=== PATIENT | female | born 1960 | race Caucasian/White ===

== ENCOUNTER 2018-09-20 02:21 | Emergency (ER) | payer BC ==
[~2018-09-20] VITALS: Ht 157.5 cm; Wt 98.4 kg
[~2018-09-20 02:21] MED LIST: ACET325; ALBU4 PO; ALBU90I INH; ALOE VERA; AMLO5 PO; ASPI81CH PO; ATOR40TA PO; AZIT250 PO; Aspirin EC81 MG; BENZ100A PO; Bystolic10 MG PO; CELE200; CETI10; CIPRO500 MG PO; CLON.1 PO; COLC.6 PO; DIAZ2 PO; DIPATR PO; DIPH50; DIPH50 PO; DULO30 PO; ESCI20; FEVERFEW; FLUO20 PO; FLUSAL2505 IH; Flagyl500 MG PO; GABA300; HYDACE10B PO; HYDACE5 PO; HYDR1TAB94 PO; INTE30I; ISODICACE; ISODICACE PO; LEVSOD50 PO; LORA1; LORA1 PO; Levaquin500 MG PO; Lovastatin20 MG PO; METO50ER PO; MODA200; MONT10T PO; Mirapex0.25 MG JT; Mirapex0.25 MG PO; NEBI5 PO; NUEDEXTA 20-101 EACH PO; ONDA4ODT MM; ONDA8ODT MM; OSTEO BI FLEX; OXYACE5T PO; PRAM.5 PO; PRED10 PO; PRIM50; PROACE100; PROACE100 PO; PROC10 PO; PROC25S PR; PROP60; Pravastatin Sod80 MG PO; Protonix40 MG PO; RABE20; RABE20 PO; RANI150 PO; STOOL SOFTENER; SUCR1 PO; TECFIDERA240 MG PO; TOLT2; [UNRECOGNIZED DRUG - CODE] M/T; [UNRECOGNIZED DRUG - OTHER]; [UNRECOGNIZED DRUG - OTHER]
[2018-09-20] MEDS ORDERED: METF500C PO (02:51)
== END 2018-09-20 03:51 | disposition home or self-care (01) ==
LOC: ER 02:21
DX: G43.909 Migraine, unspecified, not intractable, without status migrainosus (principal); I10 Essential (primary) hypertension; J44.9 Chronic obstructive pulmonary disease, unspecified; Z88.0 Allergy status to penicillin; Z88.8 Allergy status to other drugs, medicaments and biological substances; Z79.899 Other long term (current) drug therapy
CPT/HCPCS: 96361; 96374; 96375; 99283-25; J1200; J1885; J2405; J7030

== ENCOUNTER 2018-09-21 14:54 | Emergency (ER) | payer BC ==
[~2018-09-21] VITALS: Ht 157.5 cm; Wt 98.4 kg
[~2018-09-21 14:54] MED LIST changes: +METF500C PO
== END 2018-09-21 16:40 | disposition home or self-care (01) ==
LOC: ER 14:54
DX: G43.909 Migraine, unspecified, not intractable, without status migrainosus (principal); Z86.73 Personal history of transient ischemic attack (TIA), and cerebral infarction without residual deficits; F41.9 Anxiety disorder, unspecified
CPT/HCPCS: 99283

== ENCOUNTER 2018-09-23 20:11 | Emergency (ER) | payer BC ==
[~2018-09-23] VITALS: Ht 157.5 cm; Wt 98.4 kg
[2018-09-23] MEDS ORDERED: Percocet 5-3251 EACH (21:30)
== END 2018-09-23 23:42 | disposition home or self-care (01) ==
LOC: ER 20:11
DX: G43.909 Migraine, unspecified, not intractable, without status migrainosus (principal); Z88.0 Allergy status to penicillin; Z88.1 Allergy status to other antibiotic agents; Z88.8 Allergy status to other drugs, medicaments and biological substances; Z91.018 Allergy to other foods; Z79.899 Other long term (current) drug therapy; Z79.82 Long term (current) use of aspirin; Z79.84 Long term (current) use of oral hypoglycemic drugs; J44.9 Chronic obstructive pulmonary disease, unspecified; I10 Essential (primary) hypertension
CPT/HCPCS: 36415; 96361; 96374; 96375; 99283-25; J1200; J1885; J2405; J2765; J7030

== ENCOUNTER → 2020-05-20 | Outpatient (CLI) | payer BC ==
[~2020-05-20] MED LIST changes: +Percocet 5-3251 EACH
== END | disposition home or self-care (01) ==
LOC: PLD 07:49 → LAB SHORT 07:49
DX: L82.1 Other seborrheic keratosis (principal)
CPT/HCPCS: 88305

== ENCOUNTER 2020-08-05 09:44 | Emergency (ER) | payer BC ==
[~2020-08-05] VITALS: Ht 157.5 cm; Wt 98.9 kg
[~2020-08-05 09:44] MED LIST changes: +NUEDEXTA PO
[2020-08-05 10:42] LABS: BASOPHILS ABSOLUTE AUTO 0.12 K/mm3 (0.00-0.23); BASOPHILS PERCENT AUTO 1 % (0-2); EOSINOPHILS ABSOLUTE AUTO 0.26 K/mm3 (0.00-0.68); EOSINOPHILS PERCENT AUTO 3 % (0-6); Hematocrit 44.5 % (33.0-51.0); Hemoglobin 14.9 g/dL (11.5-16.0); IMMATURE GRAN ABSOLUTE AUTO 0.08 K/mm3 (0.00-0.10); IMMATURE GRAN PERCENT AUTO 1 % (0-1); LYMPHOCYTES ABSOLUTE AUTO 2.43 K/mm3 (0.84-5.20); LYMPHOCYTES PERCENT AUTO 27 % (21-46); MONOCYTES ABSOLUTE AUTO 0.59 K/mm3 (0.16-1.47); MONOCYTES PERCENT AUTO 7 % (4-13); Mean Corpuscular HGB Conc 33.5 g/dL (31.5-36.5); Mean Corpuscular Volume 96 fL (80-100); Mean Platelet Volume 9.6 fL (9.1-12.4); NEUTROPHILS ABSOLUTE AUTO 5.51 K/mm3 (1.96-9.15); NEUTROPHILS PERCENT AUTO 61 % (41-73); Platelet Count 333 K/mm3 (150-400); RDW Standard Deviation 42.1 fL (35.1-46.3); Red Blood Cell Count 4.65 M/mm3 (3.80-5.20); White Blood Cell Count 8.99 K/mm3 (4.00-11.30)
[2020-08-05 10:55] LABS: Albumin, Blood 3.9 g/dL (3.4-5.0); Albumin/Globulin Ratio 1.1 (0.8-1.8); Bilirubin, Total 0.8 mg/dL (0.1-1.0); Bun/Creatinine Ratio 14.7 (12.0-20.0); Calcium, Blood 9.6 mg/dL (8.5-10.1); Creatinine, Blood 1.09 mg/dL (0.40-1.00); Globulin, Blood 3.5 g/dL (2.2-4.0); Potassium, Blood 3.9 mmol/L (3.5-5.5); Total Protein, Blood 7.4 g/dL (6.4-8.2)
[2020-08-05 10:58] LABS: International Normalized Ratio 1.02; Prothrombin Time Results 10.9 Sec (9.7-11.5)
[2020-08-05] MEDS ORDERED: CLOP75 PO (14:22)
[2020-08-08] MEDS ORDERED: LEVSOD75 PO (15:54)
[2020-08-08] MEDS ORDERED: Norco 10-325 T1 EACH PO (15:56)
[2020-08-08] MEDS ORDERED: METFORMIN HCL500 M2 PO (20:58)
[2020-08-08] MEDS ORDERED: LOVASTATIN40 MG PO (20:58)
[2020-08-08] MEDS ORDERED: PLAVIX75 MG PO (20:58)
[2020-08-08] MEDS ORDERED: DIAZEPAM5 MG PO (21:01)
== END 2020-08-05 14:56 | disposition home or self-care (01) ==
LOC: ER 09:44
PROVIDERS: Emergency Medicine
DX: I63.9 Cerebral infarction, unspecified (principal); R47.81 Slurred speech; G83.14 Monoplegia of lower limb affecting left nondominant side; R29.810 Facial weakness; J44.9 Chronic obstructive pulmonary disease, unspecified; F41.9 Anxiety disorder, unspecified; Z79.82 Long term (current) use of aspirin; Z79.84 Long term (current) use of oral hypoglycemic drugs; Z79.899 Other long term (current) drug therapy; Z88.0 Allergy status to penicillin; Z88.1 Allergy status to other antibiotic agents; Z88.6 Allergy status to analgesic agent; Z88.8 Allergy status to other drugs, medicaments and biological substances; Z91.018 Allergy to other foods; Z86.73 Personal history of transient ischemic attack (TIA), and cerebral infarction without residual deficits
CPT/HCPCS: 36415; 70551; 80053; 85025; 85610; 93005; 93010; 99285-25

== ENCOUNTER 2020-08-08 15:21 | Inpatient (IN) | payer MEDICARE, BC ==
[~2020-08-08] VITALS: Ht 165.1 cm; Wt 96.3 kg
[~2020-08-08 15:21] MED LIST changes: +CLOP75 PO; -NUEDEXTA PO; +NUEDEXTA PT
[2020-08-08] MEDS ORDERED: LEVSOD75 PT (15:54)
[2020-08-08] MEDS ORDERED: Norco 10-325 T1 EACH PT (15:56)
[2020-08-08 15:57] LABS: BASOPHILS ABSOLUTE AUTO 0.12 K/mm3 (0.00-0.23); BASOPHILS PERCENT AUTO 1 % (0-2); EOSINOPHILS ABSOLUTE AUTO 0.14 K/mm3 (0.00-0.68); EOSINOPHILS PERCENT AUTO 1 % (0-6); Hematocrit 45.1 % (33.0-51.0); Hemoglobin 14.9 g/dL (11.5-16.0); IMMATURE GRAN ABSOLUTE AUTO 0.08 K/mm3 (0.00-0.10); IMMATURE GRAN PERCENT AUTO 1 % (0-1); LYMPHOCYTES ABSOLUTE AUTO 3.84 K/mm3 (0.84-5.20); LYMPHOCYTES PERCENT AUTO 33 % (21-46); MONOCYTES ABSOLUTE AUTO 0.89 K/mm3 (0.16-1.47); MONOCYTES PERCENT AUTO 8 % (4-13); Mean Corpuscular HGB 31.7 pg (26.0-34.0); Mean Corpuscular Volume 96 fL (80-100); Mean Platelet Volume 9.9 fL (9.1-12.4); NEUTROPHILS ABSOLUTE AUTO 6.61 K/mm3 (1.96-9.15); NEUTROPHILS PERCENT AUTO 57 % (41-73); Platelet Count 400 K/mm3 (150-400); RDW Standard Deviation 42.2 fL (35.1-46.3); White Blood Cell Count 11.68 K/mm3 (4.00-11.30)
[2020-08-08] MEDS ORDERED: OMEPRAZOLE MAGN20 MG PO (15:58)
[2020-08-08 16:29] LABS: Alanine Aminotransfer (ALT/SGP 42 U/L (12-78); Albumin, Blood 4.3 g/dL (3.4-5.0); Albumin/Globulin Ratio 1.2 (0.8-1.8); Alk Phos 87 U/L (50-136); Anion Gap 9 mmol/L (6-16); Aspartate Aminotrans (AST/SGOT 42 U/L (12-37); Bilirubin, Total 1.1 mg/dL (0.1-1.0); Blood Urea Nitrogen 20 mg/dL (8-24); Bun/Creatinine Ratio 16.4 (12.0-20.0); CO2, Blood 27 mmol/L (21-32); Calcium, Blood 9.8 mg/dL (8.5-10.1); Chloride, Blood 107 mmol/L (98-108); Creatinine, Blood 1.22 mg/dL (0.40-1.00); Globulin, Blood 3.5 g/dL (2.2-4.0); Glomerular Filtration Rate 48 (60-); Glucose, Blood 121 mg/dL (70-99); Potassium, Blood 3.4 mmol/L (3.5-5.5); Sodium, Blood 143 mmol/L (136-145); Total Protein, Blood 7.8 g/dL (6.4-8.2); Troponin I <0.015 ng/mL (0.000-0.040)
[2020-08-08] MEDS ORDERED: PLAVIX75 MG PT (20:58)
[2020-08-08] MEDS ORDERED: METFORMIN HCL500 M2 PT (20:58)
[2020-08-08] MEDS ORDERED: LOVASTATIN40 MG PT (20:58)
[2020-08-08] MEDS ORDERED: ZENZEDI10 MG PO (20:59)
[2020-08-08] MEDS ORDERED: DIAZEPAM5 MG PT (21:01)
[2020-08-09 04:17] LABS: CHOL/HDL RATIO 4.5; Cholesterol 186 mg/dL (50-200); HDL Cholesterol 41 mg/dL (>39); LDL/HDL RATIO 2.8; Low Density Lipoprotein Chol 116 mg/dL (0-110); Triglycerides 147 mg/dL (30-160); Very Low Density Lipoprot Chol 29 mg/dL (6-32)
--- NOTE | 2020-08-09 06:47 | NUR ---
SUMMARY PATIENT CAME TO FLOOR VIA STRETCHER AND WAS SLID TO BED RECIEVED REPORT FROM DOMINGUEZ TARIQ. PATIENT IS ALERT AND APPEARS ORIENTED. PATIENT IS MOSTLY NON-VERBAL AND SHAKES HER HEAD YES OR NO TO QUESTIONS AND OCCASSIONALLY ANSWERS WITH ONE WORD. RESPONSE IS SLOW, PICTURE BOARD FOR COMMUNICATION PROVIDED PATIENT HAS RIGHT SIDE WEAKNESS. PATIENT WAS A TWO PERSON TRANSFER TO BEDSIDE COMMODE BUT BECAME LESS STEADY ON HER FEET, SUGGEST BED REST FOR NOW AND PATIENT AGREED. WHO IS PRIMARY CAREGIVER CAME WITH PATIENT TO UNIT AND HELPED ANSWER QUESTIONS. HE LEFT SOON AFTER THE PATIENT ARRIVED. PATIENT TURNED Q2 HOURS. VSS, NO ACUTE CHANGES. CALL LIGHT IN REACH, BED ALARM ON, AND BED IN LOWEST POSITION.
--- NOTE | 2020-08-09 17:42 | NUR ---
PT SUMMARY; STATUS CHANGED TO MEDICAL WITH NO TELE, VITALS HAS BEEN STABLE PT REMAINS ON 2L OF O2, SATS ABOVE 94%, AFEBRILE. PT FAILED BEDSIDE SWALLOW EVAL, PT WAS UNABLE TO SWALLOW WITH THICKENED LIQUIDS DR RODRIGUES MADE AWARE, ORDER FOR DOBHOFF PLACEMENT RECEIVED, DOBHOFF PLACED AND VERIFIED PLACEMENT VIA CHEST XRAY, DIET CONSULT ORDERED PT STARTED ON GLUCERNA TO START AT 25MLS/HR TO INCREASE 10-20 MLS Q8HRS UNTIL 50MLS/HR IS ACHIEVED. PT REMAINS NON VERBAL ABLE TO NOD HEAD FOR YES/NO RESPONSE USES PICTURE BOARD FOR COMMUNICATION. PT WORKED WITH THERAPY TODAY ABLE TO TRANSFER SAFELY 2 PA VIA GAITBELT TO CHAIR/BSC, PT HAS BEEN CONTINENT ALL SHIFT OF URINE AND BOWEL. PT FOR POSSIBLE DISCHARGE TO SNF FOR REHAB THERAPY. SON WAS IN TO VISIT AND IS AWARE OF THE PLANS. PT CURRENTLY IN BED RESTING ENTERAL TUBE FEEDING RUNNING AT 25MLS/HR FLUSHES 80MLS WATER Q4 HRS. CALL LIGHTS IN REACH, WILL MONITOR UNTIL END OF SHIFT.
[2020-08-10 04:16] LABS: Bun/Creatinine Ratio 18.5 (12.0-20.0); Calcium, Blood 9.6 mg/dL (8.5-10.1); Creatinine, Blood 1.08 mg/dL (0.40-1.00); Magnesium, Blood 2.2 mg/dL (1.6-2.4); Phosphorus, Blood 3.6 mg/dL (2.5-4.9); Potassium, Blood 3.5 mmol/L (3.5-5.5)
--- NOTE | 2020-08-10 05:48 | NUR ---
SHIFT SUMMARY PT A&OX4. SP02>92% ON 4L NC. NO TELE. PT HAS DOBHOFF, MEDICATIONS GIVEN THROUGH. NUTRITION INFUSED THROUGH DOBHOFF AT 25MLS/HR, INCREASED THIS SHIFT TO 35 MLS/HR WITH MINIMAL RESIDUAL. PT ATTEMPED TO AMBULATE TO [facility] THIS SHIFT BUT WAS UNSUCCESSFUL D/T WEAKNESS. PT USED BEDPAN AND ATTENDS. PT HAD 2 LOOSE BM'S THIS SHIFT. PT C/O OF HEADACHE PAIN, PLACED COOL RAG ON FOREHEAD AND MEDICATED W/ TYLENOL PER EMAR W/ SUCCESS. PT USED POINTER BOARD FOR COMMUNICATION. PT POINTED "I AM FRUSTRATED. I AM SAD." SAT WITH PT FOR SUPPORT/COMFORT THIS SHIFT PER PT REQUEST. CALL LIGHT IN REACH. WILL CONTINUE TO MONITOR.
--- NOTE | 2020-08-10 23:15 | NUR ---
TRANSFER PT A&OX4. PT NON VERBAL, USING PICTURE BOARD TO MAKE NEEDS KNOWN. SP02>92% ON 2L NC. VSS. PT HAS DOBHOFF INFUSING NUTRITION AT 50MLS/HR. PT DENIES PAIN THIS SHIFT. PT DID HAVE A MOMENT OF EMOTION, CRYING. PT SPELLED ON THE BAORD "I WANT TO DANCE". PT STATED HER FAVORITE BAND IS Tweegee. PLAYED Tweegee MUSIC AND DANCED WITH PT, PT'S MOOD ELEVATED. PT VOIDED ONE TIME IN ATTENDS THIS SHIFT. C/D ATTENDS IN PLACE. GAVE REPORT TO MEDICAL FLOOR NURSE.
--- NOTE | 2020-08-11 01:18 | NUR ---
08/10/20 4409 REPORT RECEIVED FROM CHANDNI AGRAWAL VIA PCU; PT TO ROOM VIA BED WITH DOBHOFF FEEDING TUBE INFUSING AT 50ML/HR VIA [place]ANG[place]OO PUMP; PTS RIGHT SIDE BODY FLACCID; PT LEFT ARMS HAS LIMITED MOVEMENT DOES LEFT ARM; NPO; SUCTION DEVICE SET UP AT BEDSIDE; SHAKES HEAD UP AND DOWN TO COMMUNICATE; BED ALARM APPLIED FOR SAFETY.
--- NOTE | 2020-08-11 03:08 | NUR ---
SHIFT SUMMARY: 60 Y/O OBESE FEMALE WAS RECEIVED FROM PCU 11 THIS SHIFT; PTS FEEDING INFUSING WITHOUT RESIDUAL NOTED VIA DOBHOFF INSERTED INTO LEFT NARE; PTS RIGHT SIDE BODY FLACCID; PT ABLE HAS GROSS MOTOR MOVEMENT TO LEFT ARM/LEG; PT NPO AT THIS TIME; ORAL CARE PERFORMED; DENIES PAIN OR NAUSEA; BED ALARM APPLIED, BED LOW POSITION WITH CALL LIGHT AT SIDE.
[2020-08-11 07:41] LABS: Magnesium, Blood 2.2 mg/dL (1.6-2.4); Phosphorus, Blood 3.5 mg/dL (2.5-4.9)
--- NOTE | 2020-08-11 12:21 | NUR ---
AT THE BEDSIDE- PT HAD C/O BEING TOO FULL THIS MORNING SO CONT TUBE FEED WAS DC'D PER DR MOSELEY. PT CURRENTLY REQUESTING TO HAVE THE NG TUBE REMOVED SO SHE CAN GO HOME. PT SON IS AT THE BEDSIDE AND STATES HE CAN DO WHAT SHE NEEDS. CALLED DR MOSELEY BACK TO SPEAK TO THE PT FAMILY. PT FAILED THE SWALLOW EVAL AGAIN THIS MORNING. UNCERTAIN IF THE SON UNDERSTANDS THE PT IS UNABLE TO EAT OR DRINK WITHOUT THE NG TUBE. PT IS ALERT AND CAN COMMUNICATE WITH STAFF USING THE TOUCH BOARD THAT IS ON HER SIDE TABLE. COGNITIVELY, IT IS NOT CLEAR AT THIS TIME THAT THE PT IS ABLE TO MAKE INFORMED DECISIONS. SHE IS VERY EMOTIONALLY VULNERABLE AT THIS TIME. WILL CTM THE PT AND PROVIDE CARE NEEDED.
--- NOTE | 2020-08-11 12:49 | NUR ---
attempted to call consult office closed for lunch. will reattempt after 1300
--- NOTE | 2020-08-11 15:20 | NUR ---
CALLED DR MOSELEY- DR CARDENAS CALLED SAID PT TO BE NPO AT MIDNIGHT. PT STILL WANTS THE TUBE OUT, CALLED DR MOSELEY OK TO REMOVE DOBHOFF AND MAKE PT NPO. ORDER RECIEVED FOR IVF AT 75 PER HOUR. HOLD LOVENOX FOR TOMORROW.
--- NOTE | 2020-08-11 17:02 | NUR ---
SHIFT SUMMARY- PT ALERT AND ORIENTED TO SELF FAMILY AND TIME. PT WAS SEEN BY PHYSICAL THERAPY THIS EVENING AFTER THE DOBHOFF WAS DC'D. PT WAS ABLE TO PERFORM MULTIPLE BED EXERCISES WITH MINIMAL ASSISTANCE. PHYSICAL THERAPY REQUESTED A RECLINER CHAIR IF POSSIBLE FOR TOMORROW. PLAN IS FOR THE PT TO GO FOR SURGERY TOMORROW TO HAVE A PEG TUBE PLACED FOR PT FEEDING NEEDS. PT HAS LR RUNNING AT 75ML/HR UNTIL SHE IS ABLE TO TAKE IN PO FLUIDS. PT SON IS AT THE BEDSIDE WHERE HE HAS BEEN FOR A GOOD PORTION OF THE DAY, HE PLANS TO STAY UNTIL VISITING HOURS ARE OVER. PT HAS BEEN VERY EMOTIONAL TODAY. WHEN THE DOBHOFF WAS REMOVED, WHICH SHE TOLLERATED VERY WELL, SHE BEGAN TO CRY; SHE INDICATED THEY WERE HAPPY TEARS SHE WAS SO GLAD TO HAVE IT OUT. PT REMAINS EMOTIONALLY VULNERABLE CURRENTLY. PALLIATIVE CARE MET WITH THE PT AND HER SON TO COMPLETE A POLST FORM, FORM IS IN THE FRONT OF THE PT CHART AWAITING DR HARDIN. WILL PASS ALL ON IN REPORT TO NIGHT RN IN BEDSIDE REPORT.
[2020-08-11 17:04] LABS: Influenza A, PCR Negative (NEGATIVE); Influenza B, PCR Negative (NEGATIVE); SARS-Cov-2 (COVID-19) PCR, MMC Negative (NEGATIVE)
[2020-08-11 17:05] LABS: Resp Syncytial Virus, PCR Negative (NEGATIVE)
--- NOTE | 2020-08-11 23:29 | NUR ---
0 RESTING COMFORTABLY IN BED; REPORT RECEIVED FROM CHANDNI MENDOZA; PT NPO AND IS PENDING PEG TUBE PLACEMENT IN AM.
--- NOTE | 2020-08-12 03:51 | NUR ---
SHIFT SUMMARY: 60 Y/O OBESE FEMALE HAD RESTLESS NIGHT 1/2 SHIFT TILL GIVEN FENTANYL 50MG FOR GENERALIZED PAIN WITH RELIEF FELT; PT CONTINUES TO BE NPO AND IS PENDING PEG TUBE PLACEMENT POSSIBLY TODAY; PTS RIGHT SIDE BODY FLACCID; NO SPEECH AND ALL COMMUNICATION DONE BY POINTING VIA BEDSIDE SIGN BOARD; ABLE TO FOLLOW SIMPLE VERBAL COMMANDS; ALERT AND ORIENTED X 2; BED ALARM APPLIED FOR SAFETY, BED LOW POSITION WITH CALL LIGHT AT SIDE; PT REQUIRES 100% ASSISTANCE WITH ALL ADLS/IADLS.
[2020-08-12 05:27] LABS: Anion Gap 5 mmol/L (6-16); Blood Urea Nitrogen 17 mg/dL (8-24); Bun/Creatinine Ratio 19.1 (12.0-20.0); CO2, Blood 28 mmol/L (21-32); Calcium, Blood 9.5 mg/dL (8.5-10.1); Chloride, Blood 109 mmol/L (98-108); Creatinine, Blood 0.89 mg/dL (0.40-1.00); Glomerular Filtration Rate >60 (60-); Glucose, Blood 128 mg/dL (70-99); Magnesium, Blood 2.1 mg/dL (1.6-2.4); Phosphorus, Blood 3.8 mg/dL (2.5-4.9); Potassium, Blood 4.1 mmol/L (3.5-5.5); Sodium, Blood 142 mmol/L (136-145)
--- NOTE | 2020-08-12 12:30 | NUR ---
PT TRANSFERED FROM FLOOR TO [facility]. History, Chart, Medications and Allergies reviewed before start of procedure. Lungs clear T/O to Auscultation. Patient confirms NPO status and agrees with scheduled surgery. Pre-Op teaching done. Pt verbalizes understanding.
--- NOTE | 2020-08-12 13:38 | NUR ---
08/12/20 1338 Shawanda Flor History, Chart, Medications and Allergies reviewed before start of procedure. PATIENT CONFIRMS NPO STATUS AND AGREES WITH SCHEDULED PROCEDURE.MONITOR INTACT WITH CONTINUOUS PULSE OXIMETRY AND INTERMITTENT BP. O2 VIA N/C INTACT THROUGHOUT SEDATION/PROCEDURE. 3-LEAD EKG REVIEWED WITH PHYSICIAN PRIOR TO START OF PROCEDURE. DR. TORREZ PROVIDING MAC. Bite Block Placed.
--- NOTE | 2020-08-12 14:04 | NUR ---
recieved telephone report from kam in day surgery. she reported the pt did well in the procedure and peg tube can be used in 6 hours post op.
--- NOTE | 2020-08-12 14:46 | NUR ---
PT RETURNED FROM DAY SURGERY STATES PAIN 06/27 WITH THE COMMUNICATION BOARD. PT GRUNTING WITH RESPIRATIONS, DIFFICULT TO COMMUNICATE, BUT PT DEFINATELY IN PAIN. MEDICATED PRE OP BY THIS RN. NO IV PAIN MEDICATION AVAILABLE AT THIS TIME. CALLED DR WAY AND LEFT A MESSAGE REQUESTING PAIN MEDICATION ORDERS. AWAITING A CALL BACK.
--- NOTE | 2020-08-12 18:13 | NUR ---
SHIFT SUMMARY- PT ALERT AND ORIENTED TO SELF, FAMILY AND PEOPLE. PT HAD A PEG TUBE PLACED TODAY. ORDER FROM DR MIKE GREENE TO USE PEG TUBE AT 1999. WILL PASS ON TO NIGHT RN. FEEDING INSTRUCTIONS NOT ACKNOWLEDGED THEY WILL NOT BE STARTED UNTIL AFTER SHIFT CHANGE. PT PAIN SEEMED TO BE WELL MANAGED WITH THE IV FENTANYL 50MCG RELAXED HER AND SHE SLEPT FOR 3 HOURS. UPON WAKING SHE REQUESTED MORE, NONE AVAILABLE FOR ANOTHER HOUR. PT REPOSITIONED AT THAT TIME WILL REASSESS SHORTLY. POST OP VITALS SHOW HIGH BP NEW BP MED ORDERED VIA PEG TUBE ONCE PEG IS ABLE TO BE USED. IVF TO CONTINUE AT THIS TIME, LARGE WATER BOLUSES NOT TO START UNTIL THE PT IVF HAS BEEN STOPPED PER DIETITIAN JOE KOROMA. WILL PASS ON INREPORT TO NIGHT RN.
--- NOTE | 2020-08-13 04:23 | NUR ---
SHIFT SUMMARY PATIENT'S NEW PEG TUBE RECEIVED FIRST BOLUS OF FEEDING THIS SHIFT PER ORDER. AXOX 3 AND NON-VERBAL. BEDREST AND NPO. MEDICATION CRUSHED THROUGH PEG TUBE. ABDOMINAL PAIN X TWO AND ULTRAM AND FENTANYL USED FOR PAIN MANAGEMENT PER EMAR. POWERGLIDE ALEXANDRO INTACT. CBG 169. ON CONTINUOUS PULSE OXIMETRY STATING 95% ON 1L O2 NC. BED IN LOWEST POSITION. CALL LIGHT IN REACH. WILL CONTINUE TO MONITOR UNTIL DAY SHIFT NURSE ASSUMES CARE.
--- NOTE | 2020-08-13 10:40 | NUR ---
ASKED DR. COOK IF SHE WOULD ORDER DIFFERENT PAIN MEDS. PATIENT NOW ON MECH SOFT SO CAN HAVE P.O. MEDS IF SHE WANTS TO ORDER.
--- NOTE | 2020-08-13 16:55 | NUR ---
REFUSES 1600 TUBE FEEDING. "FEELS FULL". ABLE TO GET ABOUT 5ML FLUID BACK. ADVISED PATIENT WE CAN TRY LATER.
--- NOTE | 2020-08-13 17:47 | NUR ---
APPEARS ALERT TO SELF , FAMILY AND WHERE SHE IS. PEG TUBE PLACED YESTERDAY. RECEIVED TWO FEEDINGS ON THIS SHIFT WITH PATIENT USING READER BOARDER TO SAY SHE FEELS FULL FOR THE THIRD FEEDING. THIRD FEEDING HELD AND WILL HAVE LICENSED PESTICIDE APPLICATOR DO. RT SIDED DEFICIT AND NONVERBAL. TURNED Q 2 HOURS. VERY SOFT STOOL. IV PATENT WITH MAINTENANCE FLUIDS RUNNING. MEDICATED ONCE FOR ABD PAIN WITH GOOD RESULTS. PEG TUBE DRESSING DRY AND INTACT. UNLABORED RESPIRATIONS. CONTINUOUS SAT MONITOR ON WITH SATS LOW TO MID 90'S. PATIENT DOES DESAT WHEN SHE GETS NARCOTIC PAIN RELIEF AND NEEDS TO BE REMINDED TO TAKE DEEP BREATHES THRU HER NOSE WITH GOOD RESULTS. WCTM.
--- NOTE | 2020-08-13 19:27 | NUR ---
Patient able to gently nod yes or no to simple questions. Right upper arm and hand flaccid. did place washcloth in hand. patient able to very weakly push down on my hand when asked with right foot. no leg lift. will continue close monitoring
--- NOTE | 2020-08-14 08:24 | NUR ---
PT BEEN RESTING QUIETLY. DISCUSSED PT'S STATUS WITH DR URIBE. REVIEWED MEDICATIONS, SEE EMAR/ORDERS.
--- NOTE | 2020-08-14 08:25 | NUR ---
DR URIBE REPORTS SEEING PT, THAT THE PT HAD DIFFICULTY THIS AM WITH BOARD AND THAT PT WAS ABLE TO LIFT RIGHT LEG SLIGHTLY BUT NOT WIGGLING TOES.
--- NOTE | 2020-08-14 08:55 | NUR ---
KEYMODULE ASSEMBLY MACHINE TENDER SUMMARY Patient awake most of night watching [employer] TV. One episode of incontinent stool, and multiple episodes of urine incont. Patient was with any movement on left side all night until this morning around 0600. She began pointing to her left foot when I entered the room, and when I went around the bed, she began to lift her leg. She was able to elevate it approx 3-4 inches off the bed. After this, She very haltingly said "this ...is...hard" and stopped talking. She gestured on tcomunication board that she wanted comfort, so I sat with her and gave her encouragement about the milestones she made this morning. Minimal Pain, being medicated twice with ultram with apparent good result
--- NOTE | 2020-08-14 11:12 | NUR ---
THERAPY WORKING WITH PT.
--- NOTE | 2020-08-14 19:09 | NUR ---
SHIFT SUMMARY PT CONT TO BE NONVERBAL ALTHOUGH COMMUNICATES WELL USING BOARD OR ANSWERING YES/NO QUESTIONS. PT WAS ABLE TO BE ASSISTED TO BSC THIS EVENING WITH 2 ASSIST. PT IN ATTENDS. PT HAVING BM'S FROM TUBE FEEDINGS. PT HAS HAD TUBE FEEDINGS TODAY. PT ABLE TO USE CALL LIGHT APPR USING L ARM. PT CONT TO BE UNABLE TO USE RIGHT ARM. PT ABLE TO ASSIST TO STAND WITH ASSIST USING GAITBELT. PT RECENTLY MEDICATED FOR BACK PAIN WHICH SHE REPORTED IS WORKING WELL FOR HER. PT HERE WHEN GIVING EVENING MEDICATIONS THROUGH PEG TUBE AND WAS DEMENSTRATED HOW TO USE AND TO CRUSH MEDICATIONS. PT SAT UP IN CHAIR THIS EVENING, NOW BACK IN BED. TO SEE PT, WELL MULT OTHER STAFF.
[2020-08-15 04:42] LABS: Anion Gap 4 mmol/L (6-16); Blood Urea Nitrogen 18 mg/dL (8-24); Bun/Creatinine Ratio 21.9 (12.0-20.0); CO2, Blood 31 mmol/L (21-32); Calcium, Blood 9.1 mg/dL (8.5-10.1); Chloride, Blood 105 mmol/L (98-108); Creatinine, Blood 0.82 mg/dL (0.40-1.00); Glomerular Filtration Rate >60 (60-); Glucose, Blood 145 mg/dL (70-99); Potassium, Blood 4.2 mmol/L (3.5-5.5); Sodium, Blood 140 mmol/L (136-145)
--- NOTE | 2020-08-15 04:56 | NUR ---
RETAIL COMMISSION SALES ASSOCIATE SUMMARY PT CONTINUES TO HAVE EXPRESSIVE APASHIA, SOMETIMES ABLE TO USE LETTERBOARD AND PICTURES TO COMMUNICATE. SHE HAS MOANED D/T BACK PAIN, REPOSITIONING WITHOUT RELIEF. DENIES HEAT THERAPY, MEDICATED PER EMAR. TOLERATED TUBE FEEDING WELL. CURRENTLY ON 2L VIA NC, CONT. BIOX IN PLACE. NO ACUTE NEEDS AT THIS TIME. BED IN LOWEST POSITION WITH CALL LIGHT IN REACH. WILL CONTINUE TO MONITOR AND REPORT TO ONCOMING RN.
--- NOTE | 2020-08-15 19:05 | NUR ---
PT RESTING IN BED AND REPORTS NO PAIN. IV RUNNING. PT PREFERES TO USE THE CAMODE AND IS A 2 MAX ASSIST. PT PRESENTS WITH R DROOP AND IS NOT ABLE TO VERBALIZE HER NEEDS. PT USES COMMUNICATION BOARD WELL. CONT. [facility] Q4. STAFF WILL CONT. TO MONITOR.
--- NOTE | 2020-08-16 04:47 | NUR ---
EDUCATOR SENIOR CLINICAL SUMMARY APPEARED TO SLEEP MOST OF THE NIGHT. C/O PAIN IN ABD AND BACK, MEDICATED PER EMAR. DENIED TUBE FEEDING THIS SHIFT IT CAUSES HER MORE PAIN. CURRENTLY ON 2L VIA NC AND CONT. BIOX WITH SATS GREATER THAN 92. R. SIDED DEFICITS NOTED, ABLE TO ANSWER YES OR NO QUESTIONS. NO ACUTE CHANGES AT THIS TIME. BED IN LOWEST POSITION WITH CALL LIGHT IN REACH. WILL CONTINUE TO MONITOR AND REPORT TO ONCOMING RN.
--- NOTE | 2020-08-16 18:32 | NUR ---
PT RESTING IN BED, A/OX4, PAIN UNDER CTL AFTER BEING MEDICATED PER EMAR. PT USES CALL LIGHT WHEN WHEN IN PAIN OR NEEING TO USE THE CAMODE AND COMMUNICATION BOARD USED WELL. PT REMAINS A 2MAX ASSIST. PT WAS ABLE TO USE HER R LEG TODAY, HOWEVER SHE REMAINS NON WEIGHT BEARING ON THE R SIDE WITH NO USE OF HER R ARM. FAMILY AT BEDSIDE. STAFF WILL CONT. TO MONITOR.
--- NOTE | 2020-08-16 22:59 | NUR ---
1998 60 Y/O RESTING COMFORTABLY; PT UNABLE TO VERBALIZE ANY UNDERSTANDABLE WORDS AND USES BEDSIDE PICTURE BOARD TO COMMUNICATE WITH STAFF; PTS RIGHT SIDE BODY FLACCID; BED ALARM APPLIED FOR SAFETY.
--- NOTE | 2020-08-17 03:36 | NUR ---
SHIFT SUMMARY: 60 Y/O OBESE FEMALE HAD UNEVENTFUL NIGHT THIS SHIFT; PTS O2 SAT ON ROOM AIR IS 95% (O2 WAS REMOVED SATS WERE HIGH AND PATIENT DEVELOPED A NOSE BLEED FROM BILATERAL NARES); PT STILL UNABLE TO VERBALIZE ANY WORDS WITH EXPRESSIVE APHASIA NOTED; PTS RIGHT SIDE BODY FLACCID; PT TOLERATING PEG TUBE FEEDINGS WITH INSERTION SITE DRESSING DRY AND INTACT; PT INCONTINENT LARGE AMOUNTS URINE WITH ATTENDS DIAPERS CHANGED X 2 STAFF; PT REQUIRES BED ALARM SHE TENDS TO PLACE LEFT LEG ON SIDE RAIL AND MOVES AROUND IN BED AT TIMES; BED LOW POSITION WITH CALL LIGHT AT SIDE; DENIES NAUSEA.
[2020-08-17 05:24] LABS: BASOPHILS PERCENT AUTO 1 % (0-2); EOSINOPHILS ABSOLUTE AUTO 0.57 K/mm3 (0.00-0.68); EOSINOPHILS PERCENT AUTO 6 % (0-6); Hematocrit 38.7 % (33.0-51.0); Hemoglobin 12.5 g/dL (11.5-16.0); IMMATURE GRAN ABSOLUTE AUTO 0.16 K/mm3 (0.00-0.10); IMMATURE GRAN PERCENT AUTO 2 % (0-1); LYMPHOCYTES PERCENT AUTO 23 % (21-46); MONOCYTES ABSOLUTE AUTO 0.74 K/mm3 (0.16-1.47); MONOCYTES PERCENT AUTO 8 % (4-13); Mean Corpuscular HGB 31.6 pg (26.0-34.0); Mean Corpuscular HGB Conc 32.3 g/dL (31.5-36.5); Mean Corpuscular Volume 98 fL (80-100); Mean Platelet Volume 10.5 fL (9.1-12.4); NEUTROPHILS ABSOLUTE AUTO 5.48 K/mm3 (1.96-9.15); NEUTROPHILS PERCENT AUTO 60 % (41-73); Platelet Count 336 K/mm3 (150-400); RDW Coefficient Variation 12.1 % (11.7-14.2); RDW Standard Deviation 43.5 fL (35.1-46.3); Red Blood Cell Count 3.96 M/mm3 (3.80-5.20); White Blood Cell Count 9.15 K/mm3 (4.00-11.30)
--- NOTE | 2020-08-17 10:01 | NUR ---
AIRCRAFT STRUCTURAL REPAIRER EQUAL. CAN NOT LIFT RT ARM FROM BED. WEAK PUSH, PULL RT LEG AND CAN NOT LIFT LEG FROM BED. UNABLE TO STICK OUT TONGUE OR SMILE. VERY FAINT RT SIDED FACIAL DROOP. USES WHITE BOARD APPROPRIATELY. TM
--- NOTE | 2020-08-17 11:00 | NUR ---
PER OK TO USE PEG TUBE. WILL GIVE MORNING MEDS AND TUBE FEEDING
--- NOTE | 2020-08-17 11:00 | NUR ---
per ok to d'c continuous sat monitor. sats have been mid to high 90's off oxygen.
--- NOTE | 2020-08-17 11:22 | NUR ---
ROLLED WASHCLOTH PLACED IN PATIENTS RT HAND TO HELP PREVENT CONTRACTURES. TOLERATED TUBE FEEDING. GOOD BOWEL SOUNDS. NO C/O PAIN AFTER FEEEDING/MED INSTILLATION. HOB UP 45 DEGREES. ONE PERSON ASSIST W/GAITBELT TO BSC/CHAIR.
--- NOTE | 2020-08-17 15:02 | NUR ---
AFTER OK TO USE PEG TUBE, GIVEN SMALLER TUBE FEEDINGS AND MORE FREQUENTLY YESTERDAY AND LAST NIGHT C/O FEELING FULL. WILL TRY TO WORK UP TO NORMAL AMOUNT.
--- NOTE | 2020-08-17 15:28 | NUR ---
ALERT TO SELF AND FAMILY. ROLLED WASHCLOTH PLACED IN RT HAND. SMOKE CONTROL SUPERVISOR EQUAL BUT UNABLE TO MOVE RT ARM FROM BED. ABLE TO PUSH/PULL WITH BLE, BUT RT DEFINATELY MUCH WEAKER THAN LEFT AND UNABLE TO LIFT RT LEG UP FROM BED. IS ABLE TO SLIDE RT LEG TO SIDE OF BED. 1-2 PERSON ASSIST WITH GAITBELT TO BSC. TOLERATED FIRST 2 TUBE FEEDINGS WELL, WILL INCREASE NEXT ONE AND HAVE NIGHT DO SAME. UNLABORED RESPIRATIONS OFF OF OXYGEN. WCTM
--- NOTE | 2020-08-17 22:52 | NUR ---
@2230- ADMINISTERED PEG TUBE FEEDING PER ORDER. 1 CARTON OF GLUCERNA 1.2 BY BOLUS/GRAVITY WITH 30MLS OF WATER FLUSH PRE AND POST FEEDING. PT. AT A 45 DEGREE ANGLE. NO RESIDUAL, PT. TOLERATED WELL. WILL CONT TO MONITOR.
--- NOTE | 2020-08-18 05:32 | NUR ---
SHIFT SUMMARY- PT. WITH RT SIDED WEAKNESS, NON-VERBAL USES COMMUNICATION BOARD TO COMMUNICATE. PT. TOLERATED TUBE FEEDING WELL LAST NIGHT. C/O GENERALIZED PAIN, MEDICATED PER EMAR WITH GOOD EFFECT. INCONT, ATTENDS IN PLACE. VSS, CALL LIGHT WITHIN REACH AND SIDE RAILS UPX2. WILL CONT TO MONITOR.
[2020-08-18 06:04] LABS: BASOPHILS ABSOLUTE AUTO 0.11 K/mm3 (0.00-0.23); BASOPHILS PERCENT AUTO 1 % (0-2); EOSINOPHILS ABSOLUTE AUTO 0.53 K/mm3 (0.00-0.68); EOSINOPHILS PERCENT AUTO 5 % (0-6); Hematocrit 36.6 % (33.0-51.0); Hemoglobin 11.5 g/dL (11.5-16.0); IMMATURE GRAN ABSOLUTE AUTO 0.18 K/mm3 (0.00-0.10); IMMATURE GRAN PERCENT AUTO 2 % (0-1); LYMPHOCYTES ABSOLUTE AUTO 2.98 K/mm3 (0.84-5.20); LYMPHOCYTES PERCENT AUTO 30 % (21-46); MONOCYTES ABSOLUTE AUTO 0.87 K/mm3 (0.16-1.47); MONOCYTES PERCENT AUTO 9 % (4-13); Mean Corpuscular HGB 31.2 pg (26.0-34.0); Mean Corpuscular HGB Conc 31.4 g/dL (31.5-36.5); Mean Corpuscular Volume 99 fL (80-100); Mean Platelet Volume 10.6 fL (9.1-12.4); NEUTROPHILS PERCENT AUTO 53 % (41-73); Platelet Count 346 K/mm3 (150-400); RDW Coefficient Variation 12.2 % (11.7-14.2); RDW Standard Deviation 44.6 fL (35.1-46.3); Red Blood Cell Count 3.69 M/mm3 (3.80-5.20); White Blood Cell Count 9.87 K/mm3 (4.00-11.30)
[2020-08-18 06:19] LABS: Alanine Aminotransfer (ALT/SGP 43 U/L (12-78); Albumin/Globulin Ratio 0.9 (0.8-1.8); Alk Phos 75 U/L (50-136); Anion Gap 4 mmol/L (6-16); Aspartate Aminotrans (AST/SGOT 27 U/L (12-37); Bilirubin, Total 0.8 mg/dL (0.1-1.0); Blood Urea Nitrogen 15 mg/dL (8-24); Bun/Creatinine Ratio 16.4 (12.0-20.0); CO2, Blood 31 mmol/L (21-32); Calcium, Blood 9.6 mg/dL (8.5-10.1); Chloride, Blood 103 mmol/L (98-108); Creatinine, Blood 0.92 mg/dL (0.40-1.00); Globulin, Blood 3.5 g/dL (2.2-4.0); Glomerular Filtration Rate >60 (60-); Glucose, Blood 134 mg/dL (70-99); Potassium, Blood 4.2 mmol/L (3.5-5.5); Sodium, Blood 138 mmol/L (136-145); Total Protein, Blood 6.5 g/dL (6.4-8.2)
--- NOTE | 2020-08-18 17:23 | NUR ---
CALLED PATIENT C/O LT SIDED C.P. NON RAD. ORDER; EKG, CHEST XRAY, TROP, TELE
--- NOTE | 2020-08-18 17:45 | NUR ---
WAS IN ROOM AND THIS RN WAS UNABLE TO TALK TO HIM, SO CALLED HIM TO DISCUSS BILATERAL NECK TO MEDIAL CLAVICLE SWELLING ON PATIENT. ORDER PAIN MEDS FOR COMFORT. PATIENT ANXIOUS AT TIMES AND APPEARS TO HOLD HER BREATH. LUNG SOUNDS CLEAR. WILL WAIT FOR XRAY RESULTS. PROCESS CONTROL ENGINEER NOTIFIED.
--- NOTE | 2020-08-18 18:35 | NUR ---
PATIENT HAS C/O ABD PAIN ABOUT 1/2 HOUR AFTER GETTING TUBE FEEDING. THERE HAS BEEN NO TO 30 ML RESIDUAL PRIOR TO FEEDING. PATIENT APPEARS TO HOLD HER BREATH AT TIMES. PATIENT HAD C/O LEFT SIDED CHEST PAIN WHICH PER PATIENT NON RADIATING TO JAW TO ARM. NOT DIAPHORETIC. SAW PATIENT AND AWAITING LAB AND XRAY RESULTS. TELE ON AND SR AT 88. HAS SWELLING BILATERAL NECK TO MEDIAL CLAVICLE AREA WITH AWARE. LUNGS ARE CLEAR. APPEARS COMFORTABLE AT THIS TIME. TM
--- NOTE | 2020-08-19 04:32 | NUR ---
SHIFT SUMMARY NO ACUTE CHANGES THIS SHIFT. PT HAS C/O ABD PAIN T/O SHIFT, MEDICATED PER NOV. PT REFUSED 2100 TUBE FEEDING D/T ABD PAIN AND NAUSEA. PT IS MOSTLY NONVERBAL BUT CAN SAY SOME SIMPLE WORDS THROUGH SLURRED SPEECH, PT IS ABLE TO USE READER BOARD TO COMMUNICATE. 2 PERSON ASSIST WITH GAIT BELT TO [facility] [place] [place], HAS MOMENTS OF INCONTINENCE. PT IS CURRENTLY LAYING IN BED WITH EYES CLOSED, EVEN AND UNLABORED RESPIRATIONS. BED IN LOWERED POSITION WITH ALARM IN PLACE. NO APPARENT NEEDS OR DISTRESS AT THIS TIME, WILL CONTINUE TO MONITOR UNTIL REPORT GIVEN TO DAY RN.
[2020-08-19 05:30] LABS: BASOPHILS ABSOLUTE AUTO 0.15 K/mm3 (0.00-0.23); BASOPHILS PERCENT AUTO 1 % (0-2); EOSINOPHILS ABSOLUTE AUTO 0.53 K/mm3 (0.00-0.68); EOSINOPHILS PERCENT AUTO 5 % (0-6); Hematocrit 36.4 % (33.0-51.0); Hemoglobin 12.1 g/dL (11.5-16.0); IMMATURE GRAN ABSOLUTE AUTO 0.22 K/mm3 (0.00-0.10); IMMATURE GRAN PERCENT AUTO 2 % (0-1); LYMPHOCYTES ABSOLUTE AUTO 3.26 K/mm3 (0.84-5.20); LYMPHOCYTES PERCENT AUTO 28 % (21-46); MONOCYTES ABSOLUTE AUTO 1.08 K/mm3 (0.16-1.47); MONOCYTES PERCENT AUTO 9 % (4-13); Mean Corpuscular HGB 32.3 pg (26.0-34.0); Mean Corpuscular HGB Conc 33.2 g/dL (31.5-36.5); Mean Corpuscular Volume 97 fL (80-100); Mean Platelet Volume 10.6 fL (9.1-12.4); NEUTROPHILS ABSOLUTE AUTO 6.38 K/mm3 (1.96-9.15); NEUTROPHILS PERCENT AUTO 55 % (41-73); NRBC ABSOLUTE 0.02 K/mm3 (0.00-0.02); NRBC Auto 0.2 /100 WBC (0.0-0.2); Platelet Count 324 K/mm3 (150-400); RDW Coefficient Variation 12.3 % (11.7-14.2); RDW Standard Deviation 43.5 fL (35.1-46.3); Red Blood Cell Count 3.75 M/mm3 (3.80-5.20); White Blood Cell Count 11.62 K/mm3 (4.00-11.30)
[2020-08-19 05:46] LABS: Alanine Aminotransfer (ALT/SGP 42 U/L (12-78); Albumin, Blood 2.8 g/dL (3.4-5.0); Albumin/Globulin Ratio 0.8 (0.8-1.8); Alk Phos 71 U/L (50-136); Anion Gap 4 mmol/L (6-16); Aspartate Aminotrans (AST/SGOT 33 U/L (12-37); Bilirubin, Total 0.8 mg/dL (0.1-1.0); Blood Urea Nitrogen 15 mg/dL (8-24); Bun/Creatinine Ratio 18.1 (12.0-20.0); CO2, Blood 32 mmol/L (21-32); Calcium, Blood 9.6 mg/dL (8.5-10.1); Chloride, Blood 104 mmol/L (98-108); Creatinine, Blood 0.83 mg/dL (0.40-1.00); Globulin, Blood 3.5 g/dL (2.2-4.0); Glomerular Filtration Rate >60 (60-); Glucose, Blood 115 mg/dL (70-99); Potassium, Blood 4.1 mmol/L (3.5-5.5); Sodium, Blood 140 mmol/L (136-145); Total Protein, Blood 6.3 g/dL (6.4-8.2)
--- NOTE | 2020-08-19 19:36 | NUR ---
nonverbal but commuative, refused some of meals today said they hurt to much and backed the idea, only gave one full feeding stopped others when complained of pain, no issue with pain when only giving medication/flush, iv saline locked, rm air, bsr given to noc nurse
--- NOTE | 2020-08-20 00:58 | NUR ---
PAIN 2330 PT C/O OF SUDDEN SHARP PAIN IN ABD/ PEG TUBE AREA. ISTRATE CALLED AND HE OK'D GIVING PT FENTANYL EARLY.
[2020-08-20 05:19] LABS: BASOPHILS ABSOLUTE AUTO 0.11 K/mm3 (0.00-0.23); BASOPHILS PERCENT AUTO 1 % (0-2); EOSINOPHILS ABSOLUTE AUTO 0.56 K/mm3 (0.00-0.68); EOSINOPHILS PERCENT AUTO 5 % (0-6); Hematocrit 33.8 % (33.0-51.0); Hemoglobin 11.1 g/dL (11.5-16.0); IMMATURE GRAN ABSOLUTE AUTO 0.26 K/mm3 (0.00-0.10); IMMATURE GRAN PERCENT AUTO 2 % (0-1); LYMPHOCYTES ABSOLUTE AUTO 3.49 K/mm3 (0.84-5.20); LYMPHOCYTES PERCENT AUTO 31 % (21-46); MONOCYTES ABSOLUTE AUTO 0.88 K/mm3 (0.16-1.47); MONOCYTES PERCENT AUTO 8 % (4-13); Mean Corpuscular HGB 32.2 pg (26.0-34.0); Mean Corpuscular HGB Conc 32.8 g/dL (31.5-36.5); Mean Corpuscular Volume 98 fL (80-100); Mean Platelet Volume 10.4 fL (9.1-12.4); NEUTROPHILS ABSOLUTE AUTO 6.05 K/mm3 (1.96-9.15); NEUTROPHILS PERCENT AUTO 53 % (41-73); Platelet Count 361 K/mm3 (150-400); RDW Coefficient Variation 12.3 % (11.7-14.2); RDW Standard Deviation 43.8 fL (35.1-46.3); Red Blood Cell Count 3.45 M/mm3 (3.80-5.20); White Blood Cell Count 11.35 K/mm3 (4.00-11.30)
[2020-08-20 06:10] LABS: Alanine Aminotransfer (ALT/SGP 44 U/L (12-78); Albumin, Blood 2.9 g/dL (3.4-5.0); Albumin/Globulin Ratio 0.8 (0.8-1.8); Alk Phos 68 U/L (50-136); Anion Gap 6 mmol/L (6-16); Aspartate Aminotrans (AST/SGOT 33 U/L (12-37); Bilirubin, Total 0.9 mg/dL (0.1-1.0); Blood Urea Nitrogen 15 mg/dL (8-24); Bun/Creatinine Ratio 15.4 (12.0-20.0); CO2, Blood 30 mmol/L (21-32); Calcium, Blood 9.5 mg/dL (8.5-10.1); Chloride, Blood 104 mmol/L (98-108); Creatinine, Blood 0.97 mg/dL (0.40-1.00); Globulin, Blood 3.5 g/dL (2.2-4.0); Glomerular Filtration Rate >60 (60-); Glucose, Blood 104 mg/dL (70-99); Potassium, Blood 4.1 mmol/L (3.5-5.5); Sodium, Blood 140 mmol/L (136-145); Total Protein, Blood 6.4 g/dL (6.4-8.2)
--- NOTE | 2020-08-20 06:35 | NUR ---
SUMMARY PT CONTINUES TO COMPLAIN OF ABD PAIN. PT REPORTS INCREASE IN PAIN W/ MEDS GIVEN THROUGH PEG. PT AFRAID OF PAIN THIS AM MED PASS. PT WAS ABLE TO SLEEP SOME PAIN FREE LATE INTO SHIFT. PT CURRENTLY SLEEPING AND BREATHING EASY. CALL LIGHT IN REACH.
--- NOTE | 2020-08-20 18:42 | NUR ---
SHIFT SUMMARY PT RESTING QUIETLY AT START OF SHIFT, BUT SOON WAKING IN DISTRESS. PT NONVERBAL D/T CVA, USING PICTURE BOARD TO ASSIST WITH COMMUNICATING NEEDS. PT C/O PAIN TO ABD AT PEG TUBE INSERTION SITE. PT MEDICATED PER EMAR. DR JOSEPH THEN IN TO SEE PT. ATIVAN IV X1 ORDERED. PT EVENTUALLY CALMED DOWN. PT THEN WENT FOR CT THRU PEG TUBE. PT RETURNED AND CONTINUED TO PRESS CALL LT FREQUENTLY. PT UNABLE TO WORK WITH PT TODAY D/T BEING TO SLEEPY FROM ATIVAN. PT SOON ASSISTED TO RECLINER AT BS VIA LIFT. PT REMAINED THERE FOR A WHILE UNTIL BECOMING INCONTINENT OF BOWELS. PT ASSISTED BACK INTO BED VIA LIFT. PT CLEANED AND CHANGED, POSITIONED FOR COMFORT. PT RESTED QUIETLY FOR A WHILE WITH AT BS. CALLED FOR PAIN MEDICATION, THOUGH PT WAS SLEEPING WITH HIM AT BS. PT WOKE BREIFLY TO NOD YES TO PAIN MEDICATION. DR JOSEPH THEN IN TO DISCUSS RESULTS OF CT AND PLAN OF CARE. DR JOSEPH TO PLACE ORDERS AND PT/OT TO WORK WITH PT OVER THE WEEKEND. [place] PLACED TO PANUS AND APOLINAR AREA REDNESS. SR PER TELE MX. PG TO ALEXANDRO PATENT. CALL LT IN REACH. BED ALARM ON FOR SAFETY. REPORT GIVEN TO ONCOMING RN.
--- NOTE | 2020-08-21 03:18 | NUR ---
SUMMARY PT HAS C/O OF ABD PAIN AT BEGINNING OF SHIFT. PT HAS COMPLAINED OF FEELING LIKE SHE IS CHOKING FREQUENTLY. PT IS BREATHING EASY AND NO OBSTRUCTIONS HAVE BEEN OBSERVED. PT SUCTIONED W/ OUT ISSUE. PT HAS BEEN MOVED FROM BED TO CHAIR TO HELP RELIEVE ISSUE. PTIS NOT IN RESP. DISTRESS. PT LS ARE CLEAR AND MOVING AIR. PT HAS SLEPT ONLY SOME AFTER ATIVAN WAS GIVEN. PT CURRENTLY AWAKE AND IN NO DISTRESS. PT SITTING UP IN CHAIR WITH CHAIR ALARM ON FOR SAFETY.
--- NOTE | 2020-08-21 18:05 | NUR ---
SHIFT SUMMARY: PATIENT C/O INTERMITTENT NAUSEA TODAY, REFUSED TWO FEEDINGS BUT HAS NO RESIDUAL FROM FEEDINGS SHE DID GET. DENIED PAIN AT TIMES. HAD TWO MEDIUM TO LARGE LOOSE BM'S; STARTED ON BANATROL TO ADD FIBER AND FIRM STOOL. GETTING UP TO BSC WITH 1 PERSON MAX ASSIST, NEEDS 2 STAFF FOR PERICARE AND BTB. SON VISITED TODAY AND ATTEMPTED TO HELP WITH TRANSFERS BUT DOES NOT USE PROPER BODY MECHANICS AND HANDLES THE PATIENT INCORRECTLY. ATTEMPTED TO TEACH HIM, BUT HE KEPT DOING THINGS HIS WAY. FAMILY WILL NEED TEACHING ON TRANSFERS AND TUBE FEEDINGS PRIOR TO D/C.
--- NOTE | 2020-08-22 03:00 | NUR ---
VEST RESTRAINT PT PLACED IN VEST RESTRAINT DUE TO HIGH FALL RISK AND PT CONTINUOUSLY ATTEMPTING TO GET OUT OF BED WITHOUT ASSIST. PT HAS BEEN ASSISTED WITH BATHROOM BOTH ON BEDPAN AND HELPED TO COMMODE. HELPED PT UP TO RECLINER AND SOON AFTER PT ATTEMPTS TO GET UP AND WANTS TO GO BACK TO HER BED. HAS BEEN HELPED WITH REPOSITIONING NUMEROUS TIMES AND MEDICATED FOR PAIN MULTIPLE TIMES. PT CONTINUES TO ATTEMPT TO GET OUT OF BED ALONE. PT IS EXTREMELY UNSTEADY AND CANNOT WALK WITHOUT MAX ASSIST. PT ALSO BECOMING AGGRESSIVE WITH STAFF AND HITTING AND KICKING. NOTIFIED DR DOSS AND RECIEVED ORDER FOR RESTRAINTS WELL IV HALDOL PRN. WILL CONTINUE TO MONITOR.
--- NOTE | 2020-08-22 04:47 | NUR ---
SHIFT SUMMARY PT USES BOARD FOR COMMUNICATION; PT IS VERY IMPULSIVE AND CONTINUOUSLY TRIES TO GET OUT OF BED; PT WAS AGITATED; VERY HIGH FALL RISK DUE TO UNSTEADY GAIT. PT IS NOW ON VEST RESTRAINTS-SEE OTHER NOTE. PT HAD SEVERAL LOOSE BM TODAY; PT RECEIVED BANATROL VIA PEG TUBE. PT ALSO C.O ABD PAIN; MEDICATED PER EMAR. BED ALARM IS ON AND CALL LIGHT WITHIN REACH.
--- NOTE | 2020-08-22 05:46 | NUR ---
BP ELEVATED PT ELEVATED AFTER THE PT EPISODES OF AGITATIONS. WILL CONTINUE MONITOR AND WILL PASS ON TO DAY NURSE.
--- NOTE | 2020-08-22 10:07 | NUR ---
PT CHARLENE (YELLS) AT YOU HITS AT YOU, SLAMMING THINGS IN ROOM ON BED SIDE TABLE, JENNIFER IS ON.
--- NOTE | 2020-08-22 11:09 | NUR ---
PT CONTINUES TO ATTEMPT TO GET OUT OF BED EVEN WITH STAFF AT BEDSIDE. JENNIFER IN PLACE AND PT PULLING ON RESTRAINTS. PRN NORCO GIVEN FOR ABD PAIN. PT AGRESSIVE WITH STAFF AT TIMES. REPORT GIVEN TO CHANDNI PONCE AND PT MOVED TO ROOM 352. ATTEMPTED TO CALL TO NOTIFY BUT NO ANSWER AND ANSWERING MACHINE FULL. SPOKE WITH PHYSICAL THERAPY WHO REPORTS PT IS NOT ON THERE LIST TODAY BUT WILL TRY TO SEE HER LATER TODAY TO WORK WITH SP[employer]SE FOR HOME. UPDATE GIVEN TO CHANDNI PONCE.
--- NOTE | 2020-08-22 19:21 | NUR ---
Shift Summary Patient has been quite restless today attempting to constantly climb out of bed. Frequently up to bedside commode, to chair, and back to bed. has been removing restraints and attempting to get patient out of bed by himself setting the alarm off. This RN explain that it was unsafe to do so without another person assisting since patient is 2max with transfers. Reminded to call for assistance with transfers to and from bed/commode/chair for the safety of patient and himself. verbalized understanding however continued to get patient out of bed by himself. Remote monitoring called this RN stating gave patient some pepsi to drink. Upon entering room, this RN saw a bottle of pepsi in 's L arm, capped. Explained that patient cannot be given anything orally. responded with "I only gave her one small sip" gesturing with his fingers. Continued to educate on patient's high risk of aspiration and reminded that it was not okay to give patient ANYTHING orally. did not respond after education and left home shortly thereafter. Camera is on. Bolus feedings with flushes, patient seems to tolerate them okay. Did c/o abdominal pain for which medicated per EMAR, good relief provided. Had loose stools this shift. Bed in lowest position, call light nearby. Report given to oncoming RN.
--- NOTE | 2020-08-23 04:50 | NUR ---
SHIFT SUMMARY PT AWAKE OFF AND ON T/O SHIFT. PT CONTINUES TO ATTEMPT TO GET OOB BY SWINGING HER LEGS OFF THE SIDE. PT IS VERY WEAK AND UNSTEADY WITHOUT THE HELP OF 2 STAFF MEMBERS AND A GAIT BELT. COUPLED WITH HER CONFUSION JENNIFER VEST IS STILL NEEDED. PT IS REMINDED FREQUENTLY THAT SHE IS IN THE HOSPITAL, BUT SHE IS VERY FORGETFUL. EXPRESSIVE APHASIA CONTINUES. PT AT TIMES ANSWERS QUESTIONS BY NODDING YES OR NO, AND OTHER TIMES SHE DOES NOT RESPOND AND STARES OFF BLANKLY. PT CONTINUES TO HAVE LARGE LIQUID STOOLS. SHE HAS HAD TWO THIS SHIFT. IRRITATION REMAINS AROUND PEG TUBE SITE SKIN SURROUNDING SITE IS RED. VITALS ARE STABLE. BED IN LOWEST POSITION, CALL LIGHT WITHIN REACH.
[2020-08-23] MEDS ORDERED: BANATROL PLUS1 EACH PT (15:26)
[2020-08-23] MEDS ORDERED: COREG12.5 MG PT (15:27)
[2020-08-23] MEDS ORDERED: SERT50 PT (15:27)
[2020-08-23] MEDS ORDERED: XARELTO20 MG PT (15:27)
[2020-08-23] MEDS ORDERED: ZEGERID 20 MG1 EACH PT (15:28)
[2020-08-23] MEDS ORDERED: LOSA50 PT (15:47)
--- NOTE | 2020-08-23 17:20 | NUR ---
Discharge Summary Discharging to home with HH. Reviewed equipments available at home with (transport chair, seated walker, regular FWW, 4pt cane, shower chair, grab bars x 2 in bathroom). Gave bolus feed equipment (piston packet) and bed quach. assured this RN that bedside commode and pill staff pharmacist hospital will be purchased soon. Also sent home approximately 21 cans of Glucerna from [employer] for bolus tube feedings. Feed schedule reviewed with , education provided for tube feedings and return demonstration was given by to this RN. Hard script also given to . Reviewed discharge paperwork with , questions were answered to 's satisfaction. Escorted by TELEVISION PRODUCTION CLERK and this RN, transported home by family/personal vehicle. [employer] Saba perry/romeo with [facility] and sent referral to CM to follow up with ordering additional Glucerna and HH. Instructed patient to hold off on feeding if residual > 150 mL per JoCarol and to keep patient upright 30-45 degrees. Patient verbalized understanding. Powerglide removed, intact. Personal belongings sent home.
== END 2020-08-23 16:48 | disposition home health service (06) | DRG 65 ==
LOC: ER 15:21 → PCU 15:22 → MEDS 15:22 → PCU 22:30 → MEDS 08-10 23:45
PROVIDERS: Family Medicine; Internal Medicine; Physician Assistant; Student in an Organized Health Care Education/Training Program; Surgery; ADMIT Hospitalist
PROC: 0DH64UZ Insertion of Feeding Device into Stomach, Percutaneous Endoscopic Approach (ICD-10-PCS; 2020-08-12)
PROC: 3E0G76Z Introduction of Nutritional Substance into Upper GI, Via Natural or Artificial Opening (ICD-10-PCS; 2020-08-12)
PROC: 0DJ08ZZ Inspection of Upper Intestinal Tract, Via Natural or Artificial Opening Endoscopic (ICD-10-PCS; principal; 2020-08-12 12:00)
DX: I63.541 Cerebral infarction due to unspecified occlusion or stenosis of right cerebellar artery (principal); G81.91 Hemiplegia, unspecified affecting right dominant side; E03.9 Hypothyroidism, unspecified; E11.22 Type 2 diabetes mellitus with diabetic chronic kidney disease; Z66 Do not resuscitate; E66.01 Morbid (severe) obesity due to excess calories; G35 Multiple sclerosis; J44.9 Chronic obstructive pulmonary disease, unspecified; K21.9 Gastro-esophageal reflux disease without esophagitis; I12.9 Hypertensive chronic kidney disease with stage 1 through stage 4 chronic kidney disease, or unspecified chronic kidney disease; N18.30 Chronic kidney disease, stage 3 unspecified; R13.12 Dysphagia, oropharyngeal phase; R47.01 Aphasia; F41.9 Anxiety disorder, unspecified; Z86.73 Personal history of transient ischemic attack (TIA), and cerebral infarction without residual deficits; Z68.35 Body mass index [BMI] 35.0-35.9, adult; K59.09 Other constipation; B37.2 Candidiasis of skin and nail; E78.5 Hyperlipidemia, unspecified
CPT/HCPCS: 0241U; 36415; 70450; 70496; 70498; 71045; 71046; 71260; 74018; 74176; 74240; 80048; 80053; 80061; 82947; 83036; 83735; 83880; 84100; 84484; 85025; 92507; 92523; 92526; 92610; 93005; 93010; 93306; 93970; 94762; 96360; 96361; 97110; 97112; 97116; 97162; 97166; 97530; 97535; 99285-25; A9270; A9270-GY; C1751; C1769; C9113; J1630; J1650; J1885; J2060; J2250; J2550; J2704; J3010; J7030; J7120; Q9967

== ENCOUNTER 2020-08-31 16:05 | Emergency (ER) | payer BC ==
[~2020-08-31] VITALS: Ht 162.6 cm; Wt 81.7 kg
[~2020-08-31 16:05] MED LIST changes: +BANATROL PLUS1 EACH PT; +COREG12.5 MG PT; +DIAZEPAM5 MG PT; +LEVSOD75 PT; +LOSA50 PT; +LOVASTATIN40 MG PT; +METFORMIN HCL500 M2 PT; +Norco 10-325 T1 EACH PT; +OMEPRAZOLE MAGN20 MG PO; +PLAVIX75 MG PT; +SERT50 PT; +XARELTO20 MG PT; +ZEGERID 20 MG1 EACH PT; +ZENZEDI10 MG PO
[2020-08-31 17:05] LABS: BASOPHILS ABSOLUTE AUTO 0.13 K/mm3 (0.00-0.23); BASOPHILS PERCENT AUTO 1 % (0-2); EOSINOPHILS ABSOLUTE AUTO 0.68 K/mm3 (0.00-0.68); EOSINOPHILS PERCENT AUTO 7 % (0-6); Hematocrit 39.1 % (33.0-51.0); Hemoglobin 12.5 g/dL (11.5-16.0); IMMATURE GRAN ABSOLUTE AUTO 0.16 K/mm3 (0.00-0.10); IMMATURE GRAN PERCENT AUTO 2 % (0-1); LYMPHOCYTES ABSOLUTE AUTO 2.09 K/mm3 (0.84-5.20); LYMPHOCYTES PERCENT AUTO 21 % (21-46); MONOCYTES PERCENT AUTO 8 % (4-13); Mean Corpuscular HGB 31.9 pg (26.0-34.0); Mean Corpuscular Volume 100 fL (80-100); Mean Platelet Volume 9.9 fL (9.1-12.4); NEUTROPHILS ABSOLUTE AUTO 6.27 K/mm3 (1.96-9.15); NEUTROPHILS PERCENT AUTO 62 % (41-73); Platelet Count 504 K/mm3 (150-400); RDW Coefficient Variation 13.1 % (11.7-14.2); RDW Standard Deviation 46.9 fL (35.1-46.3); Red Blood Cell Count 3.92 M/mm3 (3.80-5.20); White Blood Cell Count 10.13 K/mm3 (4.00-11.30)
[2020-08-31 17:20] LABS: International Normalized Ratio 1.08; Prothrombin Time Results 11.5 Sec (9.7-11.5)
[2020-08-31 17:24] LABS: Albumin, Blood 3.9 g/dL (3.4-5.0); Albumin/Globulin Ratio 1.1 (0.8-1.8); Bilirubin, Total 1.1 mg/dL (0.1-1.0); Bun/Creatinine Ratio 29.2 (12.0-20.0); Calcium, Blood 10.1 mg/dL (8.5-10.1); Creatinine, Blood 1.2 mg/dL (0.40-1.00); Globulin, Blood 3.5 g/dL (2.2-4.0); Potassium, Blood 4.6 mmol/L (3.5-5.5); Total Protein, Blood 7.4 g/dL (6.4-8.2)
[2020-08-31 17:29] LABS: Source, Urine Catheter
[2020-08-31 17:32] LABS: Appearance, Urine Clear (Clear); Bilirubin, Urine Neg (Neg); Blood, Urine Neg (Neg); Color, Urine Yellow (P-Yellow); Glucose Qualitative, Urine Neg (Neg); Ketones, Urine 2+ (Neg); Leukocyte Esterase, Urine Neg (Neg); Nitrite, Urine Neg (Neg); Protein, Urine 1+ (Neg); Specific Gravity, Urine 1.025 (1.003-1.022); Urobilinogen, Urine 1+ (Normal)
[2020-08-31 18:42] LABS: Influenza A, PCR Negative (NEGATIVE); Influenza B, PCR Negative (NEGATIVE); Resp Syncytial Virus, PCR Negative (NEGATIVE); SARS-Cov-2 (COVID-19) PCR, MMC Negative (NEGATIVE)
[2020-08-31] MEDS ORDERED: METO10SY PO (19:04)
== END 2020-08-31 20:27 | disposition home or self-care (01) ==
LOC: ER 16:05
PROVIDERS: Physician Assistant
DX: I63.9 Cerebral infarction, unspecified (principal); R13.10 Dysphagia, unspecified; E11.22 Type 2 diabetes mellitus with diabetic chronic kidney disease; I12.9 Hypertensive chronic kidney disease with stage 1 through stage 4 chronic kidney disease, or unspecified chronic kidney disease; N18.9 Chronic kidney disease, unspecified; J44.9 Chronic obstructive pulmonary disease, unspecified; F41.9 Anxiety disorder, unspecified; Z20.828 Contact with and (suspected) exposure to other viral communicable diseases; Z79.02 Long term (current) use of antithrombotics/antiplatelets; Z79.84 Long term (current) use of oral hypoglycemic drugs; Z79.01 Long term (current) use of anticoagulants; Z79.899 Other long term (current) drug therapy; Z88.0 Allergy status to penicillin; Z88.1 Allergy status to other antibiotic agents; Z88.8 Allergy status to other drugs, medicaments and biological substances; Z91.018 Allergy to other foods; Z86.73 Personal history of transient ischemic attack (TIA), and cerebral infarction without residual deficits
CPT/HCPCS: 0241U; 36415; 49465; 51701; 71046; 80053; 83605; 85025; 85610; 85730; 87040; 93005; 93010; 96361; 96374; 96375; 99285-25; J2765; J7030; Q9963

== ENCOUNTER 2020-09-28 12:08 | Day surgery (SDC) | payer BC ==
[~2020-09-28] VITALS: Ht 157.5 cm; Wt 99.0 kg
[~2020-09-28 12:08] MED LIST changes: +METO10SY PO
--- NOTE | 2020-09-28 12:55 | NUR ---
TO PROCEDURE ROOM VIA WHEELCHAIR. PT. IS EPHASIC BUT UNDERSTANDS ME SPEAKING TO HER. IS HERE TO ANSWER QUESTIONS.
--- NOTE | 2020-09-28 13:20 | NUR ---
DR. KEBEDE HERE. TIMEOUT COMPLETED.ANESTHESA/SEDATION WILL BE ADMINISTERED BY DR. KOVACS.
--- NOTE | 2020-09-28 13:25 | NUR ---
JENNIFER STARTED WITH SEDATION BY DR. KOVACS.
--- NOTE | 2020-09-28 14:00 | NUR ---
120 CC ORANGE JUICE ADMININSTERED VIA PEG TUBE. CBG PRE-PROCEDURE 96.
--- NOTE | 2020-09-28 14:45 | NUR ---
DISCHARGE INSTRUCTIONS GIVEN TO (CAREGIVER) WITH VERBAL AND WRITTEN UNDERSTANDING.
--- NOTE | 2020-09-28 15:00 | NUR ---
IV REMOVED INTACT. 2X2, COBAN AND MANULA PRESSURE APPLIED. DRESSING FOR DISCHARGE.
--- NOTE | 2020-09-28 15:31 | NUR ---
DISCHARGED HOME VIA WHEELCHAIR. SON DRIVING.
== END 2020-09-28 23:14 | disposition home or self-care (01) ==
LOC: MHTC 12:08
DX: I63.40 Cerebral infarction due to embolism of unspecified cerebral artery (principal); E11.9 Type 2 diabetes mellitus without complications; Q21.1 Atrial septal defect
CPT/HCPCS: 82947; 93246; 93312; 93325; A9270; J2704; J7120

== ENCOUNTER 2021-01-17 08:24 | Inpatient (IN) | payer MEDICARE, BC ==
[~2021-01-17] VITALS: Ht 167.6 cm; Wt 72.9 kg
[2021-01-17 09:04] LABS: Source, Urine Clean Catch
[2021-01-17 09:07] LABS: Appearance, Urine Cloudy (Clear); Blood, Urine 4+ (Neg); Color, Urine Yellow (P-Yellow); Glucose Qualitative, Urine Neg (Neg); Ketones, Urine 1+ (Neg); Leukocyte Esterase, Urine 3+ (Neg); Nitrite, Urine Pos (Neg); Protein, Urine 2+ (Neg); Specific Gravity, Urine 1.015 (1.003-1.022); Urobilinogen, Urine 3+ (Normal)
[2021-01-17 09:08] LABS: BASOPHILS ABSOLUTE AUTO 0.04 K/mm3 (0.00-0.23); BASOPHILS PERCENT AUTO 0 % (0-2); EOSINOPHILS ABSOLUTE AUTO 0.03 K/mm3 (0.00-0.68); EOSINOPHILS PERCENT AUTO 0 % (0-6); Hematocrit 42.7 % (33.0-51.0); Hemoglobin 14.2 g/dL (11.5-16.0); IMMATURE GRAN ABSOLUTE AUTO 0.24 K/mm3 (0.00-0.10); IMMATURE GRAN PERCENT AUTO 2 % (0-1); LYMPHOCYTES ABSOLUTE AUTO 4.48 K/mm3 (0.84-5.20); LYMPHOCYTES PERCENT AUTO 36 % (21-46); MONOCYTES ABSOLUTE AUTO 0.72 K/mm3 (0.16-1.47); MONOCYTES PERCENT AUTO 6 % (4-13); Mean Corpuscular HGB Conc 33.3 g/dL (31.5-36.5); Mean Corpuscular Volume 90 fL (80-100); Mean Platelet Volume 10.7 fL (9.1-12.4); NEUTROPHILS ABSOLUTE AUTO 6.82 K/mm3 (1.96-9.15); NEUTROPHILS PERCENT AUTO 56 % (41-73); NRBC Auto 0.8 /100 WBC (0.0-0.2); Platelet Count 302 K/mm3 (150-400); RDW Coefficient Variation 12.9 % (11.7-14.2); RDW Standard Deviation 42.5 fL (35.1-46.3); Red Blood Cell Count 4.74 M/mm3 (3.80-5.20); White Blood Cell Count 12.33 K/mm3 (4.00-11.30)
[2021-01-17 09:11] LABS: Bilirubin, Urine 2+ (Neg)
[2021-01-17 09:18] LABS: Bacteria Mod /hpf; Mucus Mod (0-Heavy); Red Blood Cells, Urine 50-100 /hpf (0-2); Renal Epithelial Few /hpf (0-Rare); Squamous Epithelial Cells Mod /hpf (Few); White Blood Cells, Urine 25-50 /hpf (0-5)
[2021-01-17 09:22] LABS: Alanine Aminotransfer (ALT/SGP 24 U/L (12-78); Albumin, Blood 3.7 g/dL (3.4-5.0); Albumin/Globulin Ratio 0.9 (0.8-1.8); Alk Phos 102 U/L (50-136); Anion Gap 4 mmol/L (6-16); Aspartate Aminotrans (AST/SGOT 23 U/L (12-37); Bilirubin, Total 1.3 mg/dL (0.1-1.0); Blood Urea Nitrogen 28 mg/dL (8-24); Bun/Creatinine Ratio 31.9 (12.0-20.0); CO2, Blood 36 mmol/L (21-32); Calcium, Blood 10.6 mg/dL (8.5-10.1); Chloride, Blood 101 mmol/L (98-108); Creatinine, Blood 0.88 mg/dL (0.40-1.00); Globulin, Blood 3.9 g/dL (2.2-4.0); Glomerular Filtration Rate >60 (60-); Glucose, Blood 163 mg/dL (70-99); Potassium, Blood 2.8 mmol/L (3.5-5.5); Sodium, Blood 141 mmol/L (136-145); Total Protein, Blood 7.6 g/dL (6.4-8.2)
--- NOTE | 2021-01-17 13:28 | NUR ---
SBAR REPORT FROM ROSEANNA SORIANO RN
--- NOTE | 2021-01-17 14:28 | NUR ---
NUTRITION. PER , TUBE FEEDS STARTED 01/16/2021 EVENING TIME, NESTLE AT 30 ML/HR. WAS FEEDING PUREE AND THINS PRIOR. DIRECT CHILL CASTING OPERATOR EVAL "A COUPLE WEEKS AGO" DETERMINED PATIENT WAS ASPIRATING. PATIENT WAS NOT TOLERATING GOAL RATE OF 60 ML/HR OF TUBE FEED: ABD CRAMPS, AND PRESSURE.
[2021-01-18 05:57] LABS: BASOPHILS ABSOLUTE AUTO 0.04 K/mm3 (0.00-0.23); BASOPHILS PERCENT AUTO 1 % (0-2); EOSINOPHILS PERCENT AUTO 1 % (0-6); Hematocrit 30.4 % (33.0-51.0); Hemoglobin 9.6 g/dL (11.5-16.0); IMMATURE GRAN PERCENT AUTO 4 % (0-1); LYMPHOCYTES ABSOLUTE AUTO 3.03 K/mm3 (0.84-5.20); LYMPHOCYTES PERCENT AUTO 38 % (21-46); MONOCYTES ABSOLUTE AUTO 0.43 K/mm3 (0.16-1.47); MONOCYTES PERCENT AUTO 5 % (4-13); Mean Corpuscular HGB 29.7 pg (26.0-34.0); Mean Corpuscular HGB Conc 31.6 g/dL (31.5-36.5); Mean Corpuscular Volume 94 fL (80-100); NEUTROPHILS PERCENT AUTO 51 % (41-73); NRBC ABSOLUTE 0.03 K/mm3 (0.00-0.02); NRBC Auto 0.4 /100 WBC (0.0-0.2); Platelet Count 163 K/mm3 (150-400); RDW Standard Deviation 44.7 fL (35.1-46.3); Red Blood Cell Count 3.23 M/mm3 (3.80-5.20)
[2021-01-18 06:15] LABS: Magnesium, Blood 1.8 mg/dL (1.6-2.4)
[2021-01-18 06:35] LABS: Albumin, Blood 2.4 g/dL (3.4-5.0); Anion Gap 2 mmol/L (6-16); Blood Urea Nitrogen 18 mg/dL (8-24); Bun/Creatinine Ratio 27.4 (12.0-20.0); CO2, Blood 32 mmol/L (21-32); Calcium, Blood 8.6 mg/dL (8.5-10.1); Chloride, Blood 114 mmol/L (98-108); Creatinine, Blood 0.66 mg/dL (0.40-1.00); Glomerular Filtration Rate >60 (60-); Glucose, Blood 115 mg/dL (70-99); Phosphorus, Blood 1.5 mg/dL (2.5-4.9); Potassium, Blood 3.1 mmol/L (3.5-5.5); Sodium, Blood 148 mmol/L (136-145)
--- NOTE | 2021-01-18 07:56 | NUR ---
SUMMARY PT WITH SIGNIFICANT HYPOTENSION TONIGHT.NS FLUID BOLUS ORDERED AND CONTINUOUS IV AT 125/HR AFTER. ALSO HOLDING COZAAR AND COREG FOR NOW PER ORDER.PT ALSO WITH INITIAL LACTIC 2.0 AND K 2.8 WITH 20 K GIVEN IN ER. FOLLOW UP LACTIC IMPROVED.K3.1. I SPOKE WITH DR DOSS AND GAVE K ELIXER 40 MQ PER PEG TUBE IN ADDITION TO FEEDINGS.BP REMAINS HYPOTENSIVE, BUT MILD IMPROVEMENT.
--- NOTE | 2021-01-18 10:00 | NUR ---
HYPOTENSION & HELD MEDS DR. AGRAWAL NOTIFIED OF HELD COREG & COZAR THIS AM DUE TO LOWER BPS. DR. AGRAWAL ALSO NOTIFIED THAT PRILOSEC WAS UNABLE TO BE GIVEN DUE TO IT BEING A CAPSULE AND A DIFFERENT FORM MAY BE NEEDED.
--- NOTE | 2021-01-18 13:43 | NUR ---
Upon receiving an admit referral for spiritual care, I visit the patient. She does not speak but can clearly communicate yes and no. Patient nods "yes" to doing ok and "no" to having pain. Patient also nodded affirmingly when asked if prayer could be provided. I gladly say a prayer for her. I will continue to remain available to patietn and family.
--- NOTE | 2021-01-18 17:57 | NUR ---
SHIFT SUMMARY PALLIATIVE CARE CONSULT PLACED THIS AM. KATELYN IN PALLIATIVE TO FOLLOW UP WITH PT IN THE NEXT FEW DAYS. PT HAD ONE LIQUID STOOL TODAY, INCONT. ODONNELL CATH REMOVED TODAY. CONFIRMED WITH PTS THAT SHE DOES NOT HAVE ONE AT HOME, PRIOR TO THIS. RESIDUALS HAVE BEEN GOOD AND PT IS TOLERATING TUBE FEEDINGS SO FAR TODAY. URINE OUTPUT DARK IN COLOR AND LOW. DR. AGRAWAL NOTIFIED. PT DID HAVE POSITIVE BLOOD CULTURES GREW TODAY, DR NOTIFIED OF THIS ALSO. NO OTHER CHANGES IN ASSESSMENT AT THIS TIME. VS REVIEWED. BP IMPROVED. PT RESTING IN BED AFTER REPOSITIONING. CALL LIGHT IN REACH.
--- NOTE | 2021-01-18 17:57 | NUR ---
Received consult today for this patient by her floor RN Kaye. She has concerns about pt's overall condition. Per pt's , pt had been declining for the past 2 weeks. Angel, her also tells me that pt has "taken to her bed" for the past 2 YEARS. He states he noticed the changes over the past 2 years seemed to coincide with relatives passing away, life changing at they go into their 50's. Angel states he tried to encourage his to get up and walk, get moving. He states she then had a stroke last year, and is now unable to talk, or use her right side. Angel states he understands with that pt has been depressed, and he understands her quality of life is becoming poorer. He reports he and the patient's son have been discussing possible retirement or other type of placement, as her care is becoming too much for 1 person to handle. I asked him, "what would you do it Liz refused tube feeds?" He states, "I would make her eat". He does not appear ready to discuss comfort as a possibility. Will follow up again before pt leaves the hospital.
[2021-01-19 05:23] LABS: Anion Gap 3 mmol/L (6-16); Blood Urea Nitrogen 19 mg/dL (8-24); Bun/Creatinine Ratio 29.5 (12.0-20.0); CO2, Blood 29 mmol/L (21-32); Calcium, Blood 8.6 mg/dL (8.5-10.1); Chloride, Blood 114 mmol/L (98-108); Creatinine, Blood 0.64 mg/dL (0.40-1.00); Glomerular Filtration Rate >60 (60-); Glucose, Blood 93 mg/dL (70-99); Magnesium, Blood 1.6 mg/dL (1.6-2.4); Phosphorus, Blood 1.4 mg/dL (2.5-4.9); Potassium, Blood 3.9 mmol/L (3.5-5.5); Sodium, Blood 146 mmol/L (136-145)
--- NOTE | 2021-01-19 05:42 | NUR ---
60 year old Female with MS & HX of CVA with rt hemiparesis continues nonverbal & blinks per report of baseline. PT is & reported PT's Spouse unable to care for PT's needs. Reportedly had pallative care consult yesterday to discuss possible comfort care & reportedly PT's Spouse is interested in LTC. PT had allen cath dc just prior to industrial technologist & she has been incontinent of stool x 1 but no void. Bladder scanned for 186 ml. Medicated for rt sided pain with tylenol x 1 325 ng per peg, & ultram 50 mg x 1 with helpful effect. Turn & reposition Q 2 hours.
--- NOTE | 2021-01-19 15:34 | NUR ---
Spiritual care visit conducted. Patient is lying in bed and alert. I ask patient if she like music and she nodded affirmingly and then I asked her if I could play guitar for her and she again showed her approval. I played guitar for 35 minutes breaking every few songs to check-in to see how she was doing. I also spoke inspiring words and scriptures during those brief breaks. Patient would close her eyes during songs and look at me at the conclusion of each. Patient agreed to prayer which I gladly provided. Patient looked relaxed and agreed that the music was helpful. I will continue to remain available to patient and family.
--- NOTE | 2021-01-19 16:41 | NUR ---
SHIFT SUMMARY, PT ALERT AND ORIENTED, BUT DIFFICULTY TO ASSESS D/T NON VERBAL COMMUNICATION POST CVA WITH RIGHT SIDED HEMIPARESIS. PT USES BLINKING AND MILD NODDING IN RESPONSE TO YES/NO QUESTIONS. PT IN ROOM FOR VISIT TODAY, AND UPDATED ON PLAN OF CARE. DIETARY CONSULT AND ADJUSTMENT OF FEEDING TUBE ORDERS. PT CURRENTLY ON 45ML/HR OF CONT FEEDS VIA PEG TUBE WITH 60ML/HR BEING GOAL RATE. FLUIDS AND Q6 BG DC'D TODAY. REQUESTS CARDIAC MED HOLD D/T HYPOTENSIVE BP. PT CURRENTLY RECEIVING IV ABX FOR PYELONEPHRITIS AND +BLOOD CULTURES. PT REPORTED PAIN x1 TODAY, AND MEDICATED PER EMAR. PT STATES MILD PAIN IS WNL. REPOSITIONING Q2 HOURS. ODONNELL CATHETER DC'D YESTERDAY. PT HAD SPONTANEOUS VOID x3 TODAY. PT DISCUSSED WITH THIS RN AND SUPERVISOR MOLD SHOP TODAY THAT HE WOULD LIKE TO BRING PT HOME UPON DISCHARGE. VITALS REVIEWED. PT CURRENTLY RESTING IN BED WITH AT BEDSIDE. DENIES ANY NEEDS AT THIS TIME.
--- NOTE | 2021-01-19 17:12 | NUR ---
I stopped in to see pt today, and she continued to stare blankly at this RN when I attempted to speak to her. However, this afternoon when her arrived, she had perked up significantly, was able to move her head quite easily, and she not only smiled several times, but also attempted to speak 2 separate times. Discussed pt's health over the last year, and her gave a little more detail today. He states that pt had decided to try to eat food last year, and so they tried stopping the tube feeds and putting her back on a regular diet. Unfortunately, she began losing weight while on a regular diet, and when they attempted to return her back to tube feeds, she was only able to tolerate a scant amount each meal, losing a total 68 lbs prior to returning to tube feeding entirely. Plan is for pt to return home w home health.
--- NOTE | 2021-01-19 18:03 | NUR ---
ADMIT: 01/17/21 DISCHARGE: DX: Pyelonephritis CC: cpeabody CARLITOS CALL: RESIDENCE: Home CAREGIVER: Angel Brown, Spouse / Partner, Tank Ayala, Child, DX: HTN, CKD, GERD, CVA, see list DME: leoncio lift, WC, CM supplies, nebulizer, see list CCM: none [facility]: [facility]- [facility] (current) SUMMARY: Admit: 01/17/21 01/19/[address] Garcia, possible d/c date Monday. Met with and Liz, discussed care at home, feels he has everything he needs, says he and his son just need to do a little better job taking care of her. I asked if they were in need of caregiver assistance. He replied "no" He plans to have her return home at discharge. Left him my number for anything he could think of for care needs for discharge. cp This is a 60-year-old female who had a left frontal temporal cerebrovascular accident resulting in right hemiparesis and aphasia.
--- NOTE | 2021-01-20 01:39 | NUR ---
PT more alert still nonverbal except for occasional squeal when PT is painful. Incontient of lag loquid brown stool on tube feeding at 45 ml hr with 85 ml q 4 hr warer flush. NPO with pegtube after CVA & ongoing decline due to MS. Does not use call murguia, appears to watch TV with galsses on. Perianal & lillie skin redness excoriation skin care providded. Coccxy redness scarring, mepilex changed after fecal incontinence.
[2021-01-20 05:22] LABS: BASOPHILS PERCENT AUTO 1 % (0-2); EOSINOPHILS ABSOLUTE AUTO 0.25 K/mm3 (0.00-0.68); EOSINOPHILS PERCENT AUTO 2 % (0-6); Hematocrit 32.5 % (33.0-51.0); Hemoglobin 10.5 g/dL (11.5-16.0); IMMATURE GRAN ABSOLUTE AUTO 0.57 K/mm3 (0.00-0.10); IMMATURE GRAN PERCENT AUTO 5 % (0-1); LYMPHOCYTES ABSOLUTE AUTO 3.37 K/mm3 (0.84-5.20); LYMPHOCYTES PERCENT AUTO 29 % (21-46); MONOCYTES ABSOLUTE AUTO 0.62 K/mm3 (0.16-1.47); MONOCYTES PERCENT AUTO 5 % (4-13); Mean Corpuscular HGB Conc 32.3 g/dL (31.5-36.5); Mean Corpuscular Volume 93 fL (80-100); NEUTROPHILS ABSOLUTE AUTO 6.55 K/mm3 (1.96-9.15); NEUTROPHILS PERCENT AUTO 57 % (41-73); NRBC Auto 0.9 /100 WBC (0.0-0.2); Platelet Count 203 K/mm3 (150-400); RDW Coefficient Variation 13.3 % (11.7-14.2); RDW Standard Deviation 44.3 fL (35.1-46.3); White Blood Cell Count 11.46 K/mm3 (4.00-11.30)
[2021-01-20 05:49] LABS: Anion Gap 5 mmol/L (6-16); Blood Urea Nitrogen 19 mg/dL (8-24); Bun/Creatinine Ratio 28.1 (12.0-20.0); CO2, Blood 28 mmol/L (21-32); Calcium, Blood 8.9 mg/dL (8.5-10.1); Chloride, Blood 108 mmol/L (98-108); Creatinine, Blood 0.68 mg/dL (0.40-1.00); Glomerular Filtration Rate >60 (60-); Glucose, Blood 134 mg/dL (70-99); Magnesium, Blood 1.6 mg/dL (1.6-2.4); Potassium, Blood 4.1 mmol/L (3.5-5.5); Sodium, Blood 141 mmol/L (136-145)
[2021-01-20] MEDS ORDERED: BISA10S PR (15:26)
[2021-01-20] MEDS ORDERED: ATOR40TA PT (15:26)
[2021-01-20] MEDS ORDERED: DOCU100 PT (15:27)
[2021-01-20] MEDS ORDERED: LEVSOD75 PT (15:27)
--- NOTE | 2021-01-20 15:27 | NUR ---
SHIFT SUMMARY NO ACUTE CHANGES TO PRESENT THIS SHIFT. PT IS MEDICALLY STABLE. TUBE FEEDING STABLE AND TOLERATING WELL. MEDICATED X1 FOR C/O PAIN. PT MOSTLY NONVERBAL, BUT ABLE TO NOD HER HEAD YES AND NO. BED BATH GIVEN AND LINEN CHANGE DONE X2. DR RODRIGUES IN TO SEE PT THIS AM. PT TO D/C TO HOME WITH AND H/H. DICER OPERATOR CALLED TO REPORT TRANSPORTATION ARRANGED TO ASSIST PT BACK HOME. PT TO BE PICKED UP SOON. LOOSE STOOLS R/T TUBE FEEDING'S. CALAZIME LOTION APPLIED TO RECTAL REDNESS. NO S/SX OF DISTRESS NOTED. PT RESTING QUIETLY AT THIS TIME, WAITING FOR TX. CALL LT IN REACH.
[2021-01-20] MEDS ORDERED: LOSA50 PT (15:28)
[2021-01-20] MEDS ORDERED: OMEP20ER PT (15:28)
[2021-01-20] MEDS ORDERED: METF500 PT (15:28)
[2021-01-20] MEDS ORDERED: XARELTO20 MG PT (15:29)
[2021-01-20] MEDS ORDERED: PRAMIPEXOLE D0.25 MG PT (15:29)
[2021-01-20] MEDS ORDERED: SERT50 PT (15:30)
[2021-01-20] MEDS ORDERED: TRAM50 PT (15:30)
--- NOTE | 2021-01-20 17:10 | NUR ---
NOTED TO PLACE AN ORDER TO DISCONTINUE LOSARTAN UPON DISCHARGE. CALLED AND NOTIFIED SPOUSE OF THIS WHO WILL STOP LOSARTAN.
== END 2021-01-20 16:12 | disposition home health service (06) | DRG 871 ==
LOC: ER 08:24 → MEDS 11:53
PROVIDERS: Emergency Medicine; Internal Medicine; ADMIT Internal Medicine Gastroenterology
DX: A41.9 Sepsis, unspecified organism (principal); G93.41 Metabolic encephalopathy; N30.00 Acute cystitis without hematuria; R47.01 Aphasia; I69.351 Hemiplegia and hemiparesis following cerebral infarction affecting right dominant side; Z66 Do not resuscitate; G35 Multiple sclerosis; G43.909 Migraine, unspecified, not intractable, without status migrainosus; I10 Essential (primary) hypertension; E87.6 Hypokalemia; K21.9 Gastro-esophageal reflux disease without esophagitis; B96.20 Unspecified Escherichia coli [E. coli] as the cause of diseases classified elsewhere; E83.39 Other disorders of phosphorus metabolism; F48.2 Pseudobulbar affect; G25.81 Restless legs syndrome; E03.9 Hypothyroidism, unspecified; F32.9 Major depressive disorder, single episode, unspecified; E83.52 Hypercalcemia; J44.9 Chronic obstructive pulmonary disease, unspecified; F41.9 Anxiety disorder, unspecified; Z87.01 Personal history of pneumonia (recurrent); Z90.49 Acquired absence of other specified parts of digestive tract; Z90.710 Acquired absence of both cervix and uterus; Z98.890 Other specified postprocedural states; Z88.0 Allergy status to penicillin; Z88.1 Allergy status to other antibiotic agents; Z88.8 Allergy status to other drugs, medicaments and biological substances; Z79.01 Long term (current) use of anticoagulants; Z79.84 Long term (current) use of oral hypoglycemic drugs; Z79.899 Other long term (current) drug therapy
CPT/HCPCS: 36415; 51702; 70450; 71045; 73110; 74177; 80048; 80053; 80069; 81001; 82947; 83605; 83735; 84100; 84132; 84484; 85025; 87040; 87077; 87086; 87186; 93005; 93010; 96361-59; 96365-59; 96366-59; 96367-59; 99285-25; A9270; J0696; J3480; J7030; J7040; Q9967

== ENCOUNTER 2021-01-23 06:22 | Observation (INO) | payer BC ==
[~2021-01-23] VITALS: Ht 157.5 cm; Wt 72.6 kg
[~2021-01-23 06:22] MED LIST changes: +ATOR40TA PT; +BISA10S PR; +DOCU100 PT; +METF500 PT; +OMEP20ER PT; +PRAMIPEXOLE D0.25 MG PT; +TRAM50 PT
[2021-01-23 07:07] LABS: BASOPHILS ABSOLUTE AUTO 0.12 K/mm3 (0.00-0.23); BASOPHILS PERCENT AUTO 1 % (0-2); EOSINOPHILS ABSOLUTE AUTO 0.04 K/mm3 (0.00-0.68); EOSINOPHILS PERCENT AUTO 0 % (0-6); IMMATURE GRAN ABSOLUTE AUTO 0.45 K/mm3 (0.00-0.10); IMMATURE GRAN PERCENT AUTO 3 % (0-1); LYMPHOCYTES PERCENT AUTO 27 % (21-46); MONOCYTES ABSOLUTE AUTO 1.53 K/mm3 (0.16-1.47); MONOCYTES PERCENT AUTO 11 % (4-13); Mean Corpuscular HGB 30.1 pg (26.0-34.0); Mean Corpuscular HGB Conc 31.3 g/dL (31.5-36.5); Mean Corpuscular Volume 96 fL (80-100); Mean Platelet Volume 11.3 fL (9.1-12.4); NEUTROPHILS PERCENT AUTO 59 % (41-73); NRBC Auto 0.7 /100 WBC (0.0-0.2); Platelet Count 320 K/mm3 (150-400); RDW Coefficient Variation 16.8 % (11.7-14.2); RDW Standard Deviation 53.9 fL (35.1-46.3); Red Blood Cell Count 3.32 M/mm3 (3.80-5.20); White Blood Cell Count 14.54 K/mm3 (4.00-11.30)
[2021-01-23 07:18] LABS: Alanine Aminotransfer (ALT/SGP 25 U/L (12-78); Albumin, Blood 2.4 g/dL (3.4-5.0); Albumin/Globulin Ratio 0.8 (0.8-1.8); Alk Phos 64 U/L (50-136); Anion Gap 5 mmol/L (6-16); Aspartate Aminotrans (AST/SGOT 18 U/L (12-37); Bilirubin, Total 0.7 mg/dL (0.1-1.0); Blood Urea Nitrogen 28 mg/dL (8-24); Bun/Creatinine Ratio 31.2 (12.0-20.0); CO2, Blood 28 mmol/L (21-32); Calcium, Blood 8.9 mg/dL (8.5-10.1); Chloride, Blood 102 mmol/L (98-108); Globulin, Blood 3.2 g/dL (2.2-4.0); Glomerular Filtration Rate >60 (60-); Glucose, Blood 155 mg/dL (70-99); Potassium, Blood 4.5 mmol/L (3.5-5.5); Sodium, Blood 135 mmol/L (136-145); Total Protein, Blood 5.6 g/dL (6.4-8.2)
[2021-01-23 07:22] LABS: International Normalized Ratio 1.13; Prothrombin Time Results 12.1 Sec (9.7-11.5)
[2021-01-23 07:42] LABS: Free Thyroxine 0.85 ng/dL (0.70-1.60); Magnesium, Blood 1.6 mg/dL (1.6-2.4); Thyroid Stimulating Hormone 4.67 uIU/mL (0.360-4.800)
[2021-01-23 07:53] LABS: Source, Urine Catheter
[2021-01-23 07:59] LABS: Appearance, Urine Clear (Clear); Bilirubin, Urine Neg (Neg); Blood, Urine 1+ (Neg); Color, Urine Yellow (P-Yellow); Glucose Qualitative, Urine Neg (Neg); Ketones, Urine Neg (Neg); Leukocyte Esterase, Urine 1+ (Neg); Nitrite, Urine Neg (Neg); Protein, Urine 1+ (Neg); Urobilinogen, Urine NORM (Normal)
[2021-01-23 08:07] LABS: Bacteria Rare /hpf; Red Blood Cells, Urine 0-2 /hpf (0-2); Squamous Epithelial Cells Few /hpf (Few)
--- NOTE | 2021-01-23 10:32 | NUR ---
Pt back with worsening mental status and hypotension. at bedside is distrught and fatigued and showing significant stress and grief. Plan is to admit on comfort care pt may be eminent. Will see if they can manage hospice at home versus placement. stongly encouraged self care pt is diabetic and has not had any food and minimal sleep. sent him to cafeteria for a break. Review of plan with resident care aide.
--- NOTE | 2021-01-23 18:45 | NUR ---
SHIFT SUMMARY PT ARRIVED FROM ER AROUND 1245PM. DIFFICULT TO COMMUNICATE DUE TO APHASIA, BUT ABLE TO MINUTELY SHAKE HEAD NO AND NOD HEAD YES AT TIMES. GOT SL ROXANOL X2 THIS SHIFT, HAD BEEN MOANING OUT IN HALLWAYS. HAD LOOSE BMX1 THIS SHIFT, CALAZIME APPLIED TO EXCORIATED BUTTOCKS/SACRAL AREA. ATTEMPTED TO TAKE PICTURES PER PROTOCOL, BUT UNABLE TO PRINT DUE TO PRINTER ISSUES. MICONAZOLE POWDER PLACED IN GROIN FOR YEAST RASH. VISITED. CALL LIGHT IN REACH, FREQUENT CHECKS, GIVING REPORT TO NIGHT NURSE
--- NOTE | 2021-01-24 07:06 | NUR ---
SHIFT SUMMARY PT IS A 61 Y/O FEMALE, ADMITTED FOR ACUTE ENCEPHALOPATHY AND CURRENTLY ON COMFORT CARE. PT IS NONVERBAL, AND ONLY OPENED HER EYES WHEN MOVED OR TURNED BUT DID NOT RESPOND TO QUESTIONS OR STAFF. OTHERWISE SLEPT COMFORTABLY DURING THE NIGHT. NO S/S OR PAIN OR DISCOMFORT. NO ACUTE CHANGES IN PT CONDITION NOTED DURING THE NIGHT. WILL CONTINUE TO MONITOR AND TREAT PER EMAR UNTIL HAND OFF TO DAY SHIFT RN.
--- NOTE | 2021-01-24 08:14 | NUR ---
CALLED POSITIVE BLOOD CULTURES TO DR RODRIGUES AROUND 729, HE BELIEVES IT IS CONTAMINANT BUT WILL TALK TO THE
--- NOTE | 2021-01-24 17:33 | NUR ---
Review of hospice plan with patients . He may want placement at [facility] versus caregivers. Pt appears more comfortable today. Review of pt s/s and diagnositics with nursing. feels she is starting to progress more quickly towards end of life.
--- NOTE | 2021-01-24 19:14 | NUR ---
SHIFT SUMMARY BRANDON SHOWED NO NONVERBAL S/S PAIN THIS SHIFT, RESTING COMFORTABLY. ODONNELL CARE DONE, ODONNELL DRAINING WELL. CAME TO BEDSIDE. REJI PENA CAME TO SEE . PT EYES OPEN OFTEN, ATTEMPTED TO HAVE HER BLINK EYES ONCE FOR YES AND TWICE FOR NO, BUT PT DIDN'T SEEM ABLE TO UTILIZE THIS. OCCASIONALLY NODS HER HEAD MINUTELY. REPORT GIVEN TO NIGHT NURSE
--- NOTE | 2021-01-25 06:10 | NUR ---
SHIFT SUMMARY PT IS A 61 Y/O FEMALE, ORIGINALLY ADMITTED FOR ACUTE ENCEPHALOPATHY AND CURRENTLY ON COMFORT CARE. SHE IS NPO, AND OCCASIONALLY OPENS HER EYES TO TOUCH, BUT DOES NOT APPEAR TO RESPOND IN ANY WAY. NO S/S OF PAIN OR DISTRESS. NO ACUTE CHANGES IN PT CONDITION NOTED. WILL CONTINUE TO MONITOR AND TREAT PER EMAR UNTIL HAND OFF TO DAY SHIFT RN.
--- NOTE | 2021-01-25 18:18 | NUR ---
PT CONTINUES TO BE NONE VERBAL AND STARES OF IN THE ROOM. PT WAS TREATED ONCE PER EMAR FOR PAIN HAD NOTED SHE HAD STARTED TO GROAN A BIT. PT HAS SINCE BEEN SLEEPING. WILL CONTINUE TO MONITOR AND KEEP COMFORTABLE. PT IS REPOSTIONED Q2 HRS.
--- NOTE | 2021-01-26 05:00 | NUR ---
SHIFT SUMMARY ADMITTED FOR AMS. DNR CODE. COMFORT CARE STATUS. PLAN IS FOR DC W/HOSPICE. ODONNELL CATHETER IS IN PLACE AND DRAINING. SHE IS ON BEDREST. SHE DOES NOT RESPOND EXCEPT FOR AN OCCASIONAL SLIGHT NOD. WE HAVE BEEN REPOSITIONING HER Q2 HRS. SHE HAS A HX OF DYSPHAGIA, CVA, AND MS. SHE APPEARS COMFORTABLE AND HAS NOT CRIED OUT OR GROANED THIS SHIFT. NO FACIAL EXPRESSIONS OF PAIN HAVE BEEN NOTED. SHE IS ON RA. SHE IS NOT EATING OR DRINKING. SHE SLEPT THROUGHOUT SHIFT.
--- NOTE | 2021-01-26 16:12 | NUR ---
01/26/21- per chart review with Dr. Silverman, pt will be d/c home with [facility] on . Orders and rx were signed by Dr. Silverman and given to Delicia with [facility]. She is planning on meeting with the to discuss d/c and care of pt at home. -chayito
--- NOTE | 2021-01-26 17:56 | NUR ---
NO ACUTE CHANGES, PT CONTINUES TO ONLY STARE WITH NO RESPONSE. PT TURNED Q2 HRS AT THIS TIME. PT TREATED FOR PAIN PER EMAR. WILL CONINTUE TO MONITOR.
--- NOTE | 2021-01-26 18:12 | NUR ---
Plan for pt to go home on hospice tomorrow or . She appears comfortable and relaxed at this time. No new issues or concerns at this time.
--- NOTE | 2021-01-27 06:14 | NUR ---
CTA/SKIMMER SCOOP OPERATOR I HAVE ASSESSED THIS PT. I AGREE WITH HER DOCUMENTATION. SHIFT SUMMARY IN SKIMMER SCOOP OPERATOR NOTES
--- NOTE | 2021-01-27 06:41 | NUR ---
SHIFT SUMMARY ADMITTED FOR AMS. PT IS DNR/COMFORT CARE WITH PLAN TO DC HOME ON HOSPICE. PT TURNED Q2. PT NOT MEDICATED FOR PAIN THIS SHIFT DUE TO NO VISIBLE SIGNS OF PAIN/PAINFUL FACIAL EXPRESSIONS. PT APPEARED TO BE RESTING. NO NEW CONCERNS THIS SHIFT.
--- NOTE | 2021-01-27 14:03 | NUR ---
01/27/21- per chart review with Dr. Silverman, pt will d/c home on hospice tomorrow. -chayito
--- NOTE | 2021-01-27 15:44 | NUR ---
PATIENT REALLY HAS NOT COMPLAINED/SHOWED ANY INDICATION OF PAIN OR DISCOMFORT UNTIL THIS AFTER NOON AFTER SHE WAS REPOSITIONED AND CHANGED. SHE FELT VERY WARM TO THE TOUCH SO HER TEMP WAS CHECKED AND NOTED TO BE 102*. DR Mitali JOSEPH CALLED FOR ORDERS FOR ANTI-PYURETIC AND APAP PER RECTAL ADDED TO EMAR THEN ADMINISTERED TO PATIENT. PATIENT WAS THEN GIVEN IV MSIR FOR PAIN SHE BEGAN TO CRY OUT. MEDICATION WAS EFFECTIVE. PATIENT IS NOW ASLEEP RESTING COMFORTABLY, IS AT BEDSIDE. ASIDE FOR THE ONE EPISODE OF PAIN AND FEVER, THERE HAVE BEEN NO INDICATION OF PAIN OR DISCOMFORT. CARE PROVIDED PER COMFORT CARE PROTOCOL. CALL LIGHT IN REACH.
--- NOTE | 2021-01-27 20:17 | NUR ---
COMFORT CARE: PT APPEARS TO BE SLEEPING COMFORTABLE, NOT RESPONSIVE TO VERBAL STIMULI. RESPS EVEN, UNLABORED. F/C PATENT AND DRAINING TO GRAVITY. WCTM.
--- NOTE | 2021-01-28 05:02 | NUR ---
COMFORT CARE: APPEARS TO HAVE SLEPT WELL. EYES OPEN WHILE AWAKE, MAKES EYE CONTACT. PT DOES NOT SPEAK OR ANSWER QUESTIONS. CRIES OUT WHEN IN PAIN. MED X 1 SO FAR TONIGHT W/ IV MORPHINE EFFECTIVELY. F/C PATENT AND DRAINING TO GRAVITY. TURNED FOR COMFORT. WCTM.
[2021-01-28] MEDS ORDERED: ACET325 PO (10:45)
[2021-01-28] MEDS ORDERED: Acetaminophen650 M1 PR (10:45)
--- NOTE | 2021-01-28 10:45 | NUR ---
Liz familiar to me from a recent previous admission. Pt lying on left side with eyes wide open, moaning and grunting with shallow respiration. Case conferenced with pt's RN and discussed plan of care and rxs per eMar with recommendation to give 5 mg Roxanol before repositioning and transfer to [facility] for transport home with hospice today. Pt going home to family care with hospice support fairly soon this am. LISSY OAKLEY has made those arrangements. Liz cont to breathe shallowly without movement other than eyes blinking occ when spoken to.
[2021-01-28] MEDS ORDERED: [UNRECOGNIZED DRUG - OTHER] TOP (10:46)
[2021-01-28] MEDS ORDERED: MORP20L SL (10:47)
--- NOTE | 2021-01-28 10:47 | NUR ---
Pt home on hospice with Lennie with . -chayito
--- NOTE | 2021-01-28 12:29 | NUR ---
PT DISCHARGED FROM THE UNIT. IVS REMOVED. PT LEFT WITH TRANSPORT.
== END 2021-01-28 10:32 | disposition home or self-care (01) ==
LOC: ER 06:22 → MEDS 06:23
PROVIDERS: Emergency Medicine; ADMIT Internal Medicine
DX: A41.81 Sepsis due to Enterococcus (principal); A41.4 Sepsis due to anaerobes; G93.41 Metabolic encephalopathy; R65.20 Severe sepsis without septic shock; G35 Multiple sclerosis; F48.2 Pseudobulbar affect; F32.9 Major depressive disorder, single episode, unspecified; B37.49 Other urogenital candidiasis; I69.951 Hemiplegia and hemiparesis following unspecified cerebrovascular disease affecting right dominant side; I69.319 Unspecified symptoms and signs involving cognitive functions following cerebral infarction; F01.50 Vascular dementia, unspecified severity, without behavioral disturbance, psychotic disturbance, mood disturbance, and anxiety; E11.9 Type 2 diabetes mellitus without complications; I10 Essential (primary) hypertension; I95.9 Hypotension, unspecified; G25.81 Restless legs syndrome; E03.9 Hypothyroidism, unspecified; Z86.79 Personal history of other diseases of the circulatory system; Z66 Do not resuscitate; Z79.84 Long term (current) use of oral hypoglycemic drugs; Z88.1 Allergy status to other antibiotic agents; Z88.0 Allergy status to penicillin; Z88.8 Allergy status to other drugs, medicaments and biological substances; Z91.018 Allergy to other foods
CPT/HCPCS: 36415; 51702; 70450; 71045; 80053; 81001; 83605; 83735; 84439; 84443; 85025; 85610; 85730; 87040; 87076; 87077; 87086; 87186; 93005; 93010; 96365-59; 96375; 96376; 99285-25; A9270; G0378; J0696; J2270; J7030; J7060